=== PATIENT | female | born 1955 | race Caucasian/White ===

== ENCOUNTER → 2019-12-18 | Outpatient (CLI) | payer OTHER ==
--- NOTE | 2019-12-18 10:21 | MR ---
EXAMINATION TYPE: MR knee LT wo con DATE OF EXAM: 12/18/2019 COMPARISON: Plain film 12/09/2019 HISTORY: Lt knee pain x 5 mos, Medial area, no trauma. TECHNIQUE: Multiplanar, multisequence imaging of the left knee is performed without IV contrast. FINDINGS: MEDIAL MENISCUS: There is abnormal intrasubstance signal possibly due to mucoid degeneration. Discont inuity is noted at the posterior horn of the medial meniscus suggesting root anchor tear. Coronal toni ge #23 and 24 and there is some extrusion of the medial meniscus medially. LATERAL MENISCUS: Anterior and posterior horns are intact without tear. CRUCIATE LIGAMENTS: The anterior and posterior cruciate ligaments are intact and unremarkable. COLLATERAL LIGAMENTS: The medial collateral ligament and lateral collateral ligament complex are inta ct and unremarkable. EXTENSOR MECHANISM: Visualized quadriceps and patellar tendons are intact. EFFUSION: Suprapatellar joint effusion is present. POPLITEAL CYST: There is abnormal signal present within the semimembranosus gastrocnemius cyst, mixe d signal is present, difficult to exclude loose body, the cyst measures 3 cm x 6 cm in cephalad to ca udal dimension by 1.8 cm, focus of low signal on T1 and T2-weighted sequences is present measuring 11 mm x 12 mm which may be a loose body within the cyst. Fluid signal is present within the soft tissue s of the musculature along the fascial planes which may represent rupture of the Espinoza's cyst, there may be some associated hemorrhage. TRICOMPARTMENT SPACES: Joint space loss is present in the medial compartment CARTILAGE: Grade 3 to grade IV chondromalacia present in the medial compartment. BONE MARROW SIGNAL: Some subchondral marrow edema suspected in the medial femoral condyle. Small focu s of increased signal within the metaphysis of the distal femur shows a increased signal on T2, low s ignal on T1-weighted images and measures 7 mm in greatest dimension, possible small in chondroma OTHER: No additional significant abnormality is appreciated. IMPRESSION: Tear of the posterior root anchor of the medial meniscus. Osteoarthritis. Semimembranosus gastrocnemi us cyst which may have ruptured, possible small loose body.
== END | disposition home or self-care (01) ==
LOC: RADMRIMAIN 09:01
PROVIDERS: ATTEND Orthopaedic Surgery
DX: S83.242A Other tear of medial meniscus, current injury, left knee, initial encounter (principal); M17.12 Unilateral primary osteoarthritis, left knee

== ENCOUNTER → 2019-12-30 | Outpatient (CLI) | payer OTHER ==
[2019-12-30 10:11] LABS: Basophils % (A) 0 %; Eosinophils # (A) 0.1 k/uL (0-0.7); Eosinophils % (A) 2 %; HCT 44.2 % (34.0-46.0); HGB 14.9 gm/dL (11.4-16.0); Lymphocytes # (A) 1.9 k/uL (1.0-4.8); Lymphocytes % (A) 28 %; MCH 34.3 pg (25.0-35.0); MCHC 33.6 g/dL (31.0-37.0); MCV 102.1 fL (80.0-100.0); Macrocytosis Slight; Mean Platelet Volume 6.4; Monocytes # (A) 0.4 k/uL (0-1.0); Monocytes % (A) 6 %; Neutrophils # (A) 4.1 k/uL (1.3-7.7); Neutrophils % (A) 62 %; Platelet Count 423 k/uL (150-450); RBC 4.33 m/uL (3.80-5.40); RDW 12.4 % (11.5-15.5); WBC 6.6 k/uL (3.8-10.6)
== END | disposition home or self-care (01) ==
LOC: LABPAT 09:28
PROVIDERS: ATTEND Orthopaedic Surgery
DX: Z01.818 Encounter for other preprocedural examination (principal); M23.92 Unspecified internal derangement of left knee
CPT/HCPCS: 85025; 93005

== ENCOUNTER → 2020-01-05 | Outpatient (CLI) | payer OTHER | END | disposition home or self-care (01) | LOC: LABWHC1 14:05 | PROVIDERS: ATTEND Orthopaedic Surgery | DX: Z11.59 Encounter for screening for other viral diseases (principal) ==

== ENCOUNTER 2020-01-07 08:49 | Day surgery (SDC) | payer OTHER ==
[2020-01-06 11:48] VITALS: BMI 21.6
--- NOTE | 2020-01-06 15:23 | HP ---
HISTORY AND PHYSICAL DATE OF SURGERY: 01/07/2020 Anitha Caraballo is a 64-year-old patient seen with progressive left knee pain. We discussed options. She elected to proceed with arthroscopy. Consent was obtained. PAST MEDICAL HISTORY: Hypertension, hyperlipidemia, hypothyroidism. PAST SURGICAL HISTORY: Cholecystectomy, hysterectomy. DAILY MEDICATIONS: Atorvastatin, levothyroxine, multiple vitamins. ALLERGIES: NONE. SOCIAL HISTORY: Denies tobacco use. PHYSICAL EVALUATION OF THE LEFT KNEE: Range of motion is 0 to 120. There is a moderate effusion. Tenderness, medial joint line. Positive medial Za's. Ligaments stable. Hip rotation is without pain. Her distal neurovascular exam is intact. RADIOGRAPHS: Radiographs of the left knee revealed moderate medial compartment osteoarthritis. Left knee MRI revealed medial meniscal tear. IMPRESSION: 1. Internal derangement of the left knee with medial meniscal tear. 2. Left knee osteoarthritis. 3. Hypothyroidism. 4. Hyperlipidemia. PLAN: Left knee arthroscopy with partial meniscectomy, partial synovectomy and debridement. MMODL / IJN: [id number] /
[~2020-01-07 08:49] MED LIST: DEXAMETHASONE SOD PHOSPHATE 10 MG/ML 1 ML VIAL IV ONE; LACTATED RINGERS 1,000 ML IV SCH; LIDOCAINE 1% (10MG/ML) FOR IV START INTRADERMA PRN; MIDAZOLAM 2 MG/2 ML VIAL IV PRN; ONDANSETRON 4 MG/2 ML VIAL IVP ONE
[2020-01-07] MEDS ORDERED: SCOPOLAMINE 1.5MG/72HR PATCH TRANSDERM ONE (09:20)
[2020-01-07 09:41] VITALS: TEMP 97.3
[2020-01-07 09:50] LABS: African American GFR (CKD) >90 (>60 ml/min/1.73 sqM); Anion Gap 7 mmol/L; Blood Urea Nitrogen 17 mg/dL (7-17); Carbon Dioxide 27 mmol/L (22-30); Chloride 106 mmol/L (98-107); Glucose 105 mg/dL (74-99); Non-African American GFR(CKD) >90 (>60 ml/min/1.73 sqM); Potassium 3.6 mmol/L (3.5-5.1); Sodium 140 mmol/L (137-145)
[2020-01-07] MEDS ORDERED: MIDAZOLAM 2 MG/2 ML VIAL ONE (09:55)
[2020-01-07] MEDS ORDERED: HYDROmorphone (PF) 1 MG/ML ONE (09:55)
[2020-01-07] MEDS ORDERED: LIDOCAINE 1% INJ 10MG/ML (20 ML MDV) ONE (09:55)
[2020-01-07] MEDS ORDERED: fentaNYL (PF) 50 MCG/ML 2 ML AMP ONE (09:55)
[2020-01-07] MEDS ORDERED: PROPOFOL 10 MG/ML 20 ML VIAL IV ONE (09:55)
[2020-01-07] MEDS ORDERED: BUPIVACAINE (PF) 0.25% 30 ML VIAL SQ ONE ×2 (10:01→10:41)
--- NOTE | 2020-01-07 11:05 | P.OP ---
Date of Procedure: 01/07/20 Preoperative Diagnosis: Internal derangement left knee Postoperative Diagnosis: 1. Tear medial meniscus left knee 2. Grade 4 chondromalacia medial femoral condyle left knee 3. Reactive synovitis medial, lateral and suprapatellar compartments left knee Procedure(s) Performed: 1. Arthroscopic partial medial meniscectomy left knee 2. Arthroscopic chondroplasty medial femoral condyle left knee 3. Arthroscopic microfracture medial femoral condyle left knee 4. Arthroscopic partial synovectomy medial, lateral and suprapatellar compartments left knee Anesthesia: JENNIFERA, local Surgeon: Adam Chiang Estimated Blood Loss (ml): 7 Pathology: none sent Condition: stable Disposition: PACU Indications for Procedure: 64-year-old patient seen with progressive left knee pain. After treatment options were discussed, she elected to proceed with arthroscopy. Operative Findings: See description of procedure Description of Procedure: Patient was taken to the operative suite. Patient underwent a general anesthetic by the department of anesthesia. Patient was given preoperative antibiotics. The left lower extremity was placed in a well-padded arthroscopic leg coles. The left leg was prepped and draped in the normal sterile orthopedic fashion. A lateral parapatellar and suprapatellar incision was made. Trochars were inserted. Arthroscopy was initiated. Suprapatellar pouch revealed diffuse thick reactive synovitis. The patellofemoral joint appeared to articulate congruently. There was grade 1 chondromalacia of the patella with no osteochondral tears present. The scope was guided into the medial gutter. No loose bodies or plica were identified. The scope was then guided into the medial compartment. A medial parapatellar incision was made. Trocar inserted followed by probe. there was a complex tear involving the posterior horn of the medial meniscus. There were grade 4 chondromalacia changes of the femoral condyle with a 2 cm area of exposed bone. There were grade 4 chondral moist changes of the tibial plateau with small areas of exposed bone. There was thick reactive synovitis anteriorly. I performed a partial medial meniscectomy getting down to stable tissue. I performed a chondroplasty of the medial femoral condyle. I performed a partial synovectomy. I now introduced the microfracture awls performed a microfracture in that area of exposed bone medial femoral condyle penetrating the bone with resultant bleeding at the microfracture site. The residual meniscus was probed and found to be stable. There was good decompression of synovitis.Scope and probe were then guided into the intercondylar notch. Cruciates were identified, probed and found to be stable. The scope and probe were then guided into lateral compartment. The lateral meniscus was probed and found to be stable. There were grade 1 chondromalacia changes of the lateral compartment. There was thick reactive synovitis anteriorly. I performed a partial synovectomy decompressing reactive synovitis. There was good decompression of the synovitis. The scope was in guided back into the suprapatellar compartment. I introduced a motorized shaver into the suprapatellar compartment. I debrided some piecemeal fragments of meniscus I encountered. I performed a partial synovectomy. Shaver was removed. I took more look on the entire knee, no residual debris. Instruments were now removed from the joint. The joint was infiltrated with .25% Marcaine. Steri-Strips were applied to the portal sites. Sterile dressings were applied. The patient was placed into a ALL hose. No tourniquet was utilized. The patient was awakened, transferred to a bed and taken to recovery stable satisfactory condition.
[2020-01-07] MEDS: HYDROmorphone 0.5 MG/0.5 ML SYRINGE IVP PRN ×2 (11:14→11:30)
[2020-01-07] MEDS ORDERED: ONDANSETRON 4 MG/2 ML VIAL IVP ONE (13:01)
[2020-01-07 13:11] VITALS: RESP 18
[2020-01-07] MEDS ORDERED: diphenhydrAMINE 25 MG CAP PO STA (14:30)
[2020-01-07 14:55] VITALS: BP 122/70; PULSE 89
[2020-01-07] MEDS ORDERED: diphenhydrAMINE 25 MG CAP PO ONE (15:13)
== END 2020-01-07 15:51 | disposition home or self-care (01) ==
LOC: OR 08:49
PROVIDERS: ATTEND Orthopaedic Surgery
DX: S83.242A Other tear of medial meniscus, current injury, left knee, initial encounter (principal); X58.XXXA Exposure to other specified factors, initial encounter; M94.262 Chondromalacia, left knee; M65.862 Other synovitis and tenosynovitis, left lower leg; I10 Essential (primary) hypertension; E78.5 Hyperlipidemia, unspecified; E03.9 Hypothyroidism, unspecified; Z79.890 Hormone replacement therapy; Z79.899 Other long term (current) drug therapy; Z90.49 Acquired absence of other specified parts of digestive tract; Z90.710 Acquired absence of both cervix and uterus; Z86.718 Personal history of other venous thrombosis and embolism; H81.09 Meniere's disease, unspecified ear; Z91.012 Allergy to eggs
CPT/HCPCS: 29881; 29879; 29876; 80048; J2250; J1100; J2405; J0690; J2001; J3010; J1170 ×2; J2704

== ENCOUNTER → 2020-04-28 | Outpatient (CLI) | payer OTHER | END | disposition home or self-care (01) | LOC: LABPAT 14:45 | PROVIDERS: ATTEND Orthopaedic Surgery | DX: Z01.812 Encounter for preprocedural laboratory examination (principal) | CPT/HCPCS: 87070 ==

== ENCOUNTER 2020-05-17 13:13 | Day surgery (SDC) | payer OTHER ==
[2020-05-11 15:30] VITALS: BMI 21.6
--- NOTE | 2020-05-16 11:43 | HP ---
HISTORY AND PHYSICAL REASON FOR ADMISSION: Surgery is scheduled for 05/18/2020. HISTORY OF PRESENT ILLNESS: Anitha Caraballo is a 64-year-old patient seen with symptomatic left knee osteoarthritis. After treatment options were discussed with her, she elected to proceed left total knee arthroplasty. Consent regarding the procedure was obtained. Medical clearance was provided by Dr. Fredy Vidales. PAST MEDICAL HISTORY: Hyperlipidemia, hypothyroidism, cardiovascular disease. PAST SURGICAL HISTORY: Colonoscopy, hysterectomy, left knee arthroscopy. DAILY MEDICATIONS: Atorvastatin, estradiol, levothyroxine, triamterene/hydrochlorothiazide, multivitamins. ALLERGIES: None. SOCIAL HISTORY: She denies current tobacco use. PHYSICAL EXAMINATION: Evaluation of the left knee: Range of motion is -3 to 120. She has mild to moderate effusion present. Tenderness along the medial joint line. Crepitus along the medial patellofemoral compartments with range of motion. Pain with patellofemoral compression. Her ligaments are stable. Hip rotation is without pain. Distal neurovascular exam is intact. RADIOGRAPHS: Radiographs of the left knee reveal severe osteoarthritic changes. IMPRESSION: 1. Left knee osteoarthritis. 2. Hypertension. 3. Hyperlipidemia. 4. Hypothyroidism. PLAN: Left total knee arthroplasty. Surgery scheduled for 05/17/2020. MMODL / IJN: [id number] /
[~2020-05-17 13:13] MED LIST changes: +ACETAMINOPHEN TAB 500 MG TAB PO ONE; -LACTATED RINGERS 1,000 ML IV SCH; -LIDOCAINE 1% (10MG/ML) FOR IV START INTRADERMA PRN; +MELOXICAM 7.5 MG TAB PO ONE; +ROPIVACAINE 246.25 MG, EPINEPHrine 0.5 MG, KETOROLAC 30 MG, cloNIDine HCL/PF 80 MCG, WA... MISCELLANE ONE; +SCOPOLAMINE 1.5MG/72HR PATCH TRANSDERM ONE; +TRANEXAMIC ACID 1,000 MG in SODIUM CHLORIDE 0.9% 100 ML IVPB ONE; +fentaNYL (PF) 50 MCG/ML 2 ML AMP IVP PRN
[2020-05-17] MEDS: LACTATED RINGERS 1,000 ML IV SCH ×3 (14:01→18:41)
[2020-05-17] MEDS ORDERED: SODIUM CHLORIDE 0.9% 100 ML BAG ONE (15:05)
[2020-05-17] MEDS ORDERED: PROPOFOL 10 MG/ML 20 ML VIAL IV ONE (15:05)
[2020-05-17] MEDS ORDERED: LIDOCAINE 1% INJ 10MG/ML (20 ML MDV) ONE (15:05)
[2020-05-17] MEDS ORDERED: fentaNYL (PF) 50 MCG/ML 2 ML AMP ONE (15:05)
[2020-05-17] MEDS ORDERED: MIDAZOLAM 2 MG/2 ML VIAL ONE (15:05)
[2020-05-17] MEDS ORDERED: TRANEXAMIC ACID 1,000 MG/10 ML VIAL ONE (15:05)
--- NOTE | 2020-05-17 16:54 | P.OP ---
Date of Procedure: 05/17/20 Preoperative Diagnosis: Left knee osteoarthritis Postoperative Diagnosis: Left knee osteoarthritis Procedure(s) Performed: Left total knee arthroplasty Implants: 1. Depuy attune size 4 left narrow cruciate retaining cemented femur 2. Depuy attune size 2 fixed bearing cemented tibial baseplate 3. Depuy attune size 4 fixed bearing cruciate retaining 6 mm polyethylene tibial insert 4. Depuy attune 35 mm all polyethylene cemented patella Anesthesia: GETA, local, spinal Surgeon: Adam Chiang Back Panel Padder #1: Main Narayanan Estimated Blood Loss (ml): 50 Pathology: other (Bone) Condition: stable Disposition: PACU Indications for Procedure: 64-year-old patient seen with symptomatic left knee osteoarthritis. After treatment options were discussed, she elected to proceed with total knee arthroplasty. Operative Findings: See description of procedure Description of Procedure: Patient was taken to the operative suite after having an adductor canal catheter placed by the department of anesthesia. Patient underwent a spinal anesthetic by the department of anesthesia. Patient was given preoperative IV intake antibiotics and TXA. A well-padded tourniquet was placed about the left lower extremity. The lower extremity was then prepped and draped in the normal sterile orthopedic fashion. The extremity was elevated, a tourniquet was insufflated to 300. A standard anterior incision was made sharply through skin. Dissection was taken down through the subcutaneous soft tissues down to the extensor mechanism. A medial arthrotomy was performed, patella was everted and knee was flexed. There was advanced osteoarthritis noted. At this point the patient began feeling some of the procedure and she was converted to a general anesthetic by the department of anesthesia. I introduced my distal intramedullary femoral drill. I then introduced the distal femoral cutting jig. Duane RAMOS secured the cutting jig with 2 pins. I held retractors in position while Duane RAMOS performed the distal femoral resection through the guide area we now removed her distal femoral cutting guide. We now placed our 4-in-1 femoral cutting block and positioned and it was secured with 2 pins by Duane RAMOS while I held the block in position. The distal femoral finishing was now completed. A proximal tibial cutting guide was positioned. I held the guide in the appropriate position with both hands well Duane RAMOS inserted stabilizing pins into the guide. Proximal tibial cut was made. We now placed a trial femoral component into position, along with an appropriate size tibial tray and insert. We now took the knee through range of motion and had full extension good flexion and good overall soft tissue balance noted. The patella was everted and stabilized with 2 towel clips held by Duane RAMOS while I performed a flush with patellar quad tendon utilizing a fresh sawblade. We templated the patella, appropriate drill holes were made. An appropriate trial patella was positioned, knee was taken through full range of motion with the patella tracking very nicely. The trial patella was removed. Drill holes were made through the femoral component. All trial components were removed after marking off the appropriate rotation of the tibia. Retractors were now positioned along the proximal tibia. An appropriate keel punch was made with t he appropriate size tibial guide by myself on Duane RAMOS assisted by holding retractors. At this point appropriate size implants were chosen and opened. The joint was irrigated copiously with pulse lavage mechanical irrigation. The posterior capsule was infiltrated with local analgesic. The wound was irrigated with pulse lavage mechanical irrigation. We mixed antibiotic methylmethacrylate . We placed the knee into flexion. We placed multiple retractors assisted by Duane RAMOS to expose the proximal tibia. Once the methyl methacrylate was ready, the tibial component was cemented into place removing any excess methylmethacrylate form by both myself and Duane RAMOS. The femoral component was cemented into place removing the removing any excess methylmethacrylate performed by both myself and Duane RAMOS. We then inserted the appropriate size polyethylene tibial insert. We made sure that it was locked into position. We took the knee into full extension, and then back in a flexion making sure we had removed any excess methylmethacrylate. The patellar component was then cemented down and secured with clamp. Excess methylmethacrylate removed. We kept the knee in full extension, patellar clamp in position until methylmethacrylate had hardened. Once it had hardened the patellar clamp was removed. The knee was taken through full range of motion. The patella tracked nicely. There was good soft tissue balancing. The tourniquet was now released. Additional hemostasis was achieved via electrocautery. A second gram of TXA was given. The wound again was irrigated with pulse lavage mechanical irrigation. The superficial soft tissues were infiltrated local analgesic. The extensor mechanism was repaired with Vicryl. We checked the repair with range of motion and it was stable. The subcutaneous soft tissues were repaired with Vicryl in layers. The skin was approximated with pernio/Dermabond. Sterile dressings were applied followed by loose web ro ll and Tolu bandage. The patient was transferred to a bed, and taken to recovery in stable and satisfactory condition. Duane RAMOS assisted with this complex procedure.
[2020-05-17] MEDS ORDERED: HYDROmorphone 0.5 MG/0.5 ML SYRINGE IVP PRN ×2 (16:55)
[2020-05-17] MEDS ORDERED: HYDROmorphone 1 MG/ML 1 ML SYRINGE IVP PRN (16:55)
[2020-05-17] MEDS ORDERED: ONDANSETRON 4 MG/2 ML VIAL IVP PRN (16:55)
[2020-05-17] MEDS ORDERED: NALOXONE 0.4 MG/ML 1 ML VIAL IV PRN (16:55)
[2020-05-17] MEDS ORDERED: HYDROcodone/APAP 5-325MG 1 EACH TAB PO PRN (16:55)
[2020-05-17] MEDS ORDERED: ROPIVACAINE 0.2%-NS ON-Q PUMP 1,090 MG, EMPTY PAIN BALL 1 EACH MISCELLANE PRN (17:06)
[2020-05-17] MEDS: HYDROmorphone 0.5 MG/0.5 ML SYRINGE IVP PRN ×2 (17:39→17:49)
--- NOTE | 2020-05-17 17:41 | XR ---
EXAMINATION TYPE: XR knee limited LT DATE OF EXAM: 05/17/2020 COMPARISON: 03/30/2020 HISTORY: Postop TECHNIQUE: 2 views FINDINGS: There is a total knee prosthesis. Components are in anatomic position. IMPRESSION: No complicating process seen.
[2020-05-17] MEDS: HYDROcodone/APAP 5-325MG 1 EACH TAB PO PRN ×2 (18:39→23:55)
--- NOTE | 2020-05-17 19:37 | P.ANPRN ---
Procedure Note - Anesthesia - Nerve Block Performed Left Adductor Canal Infusion Time Out Performed: Yes Date of Procedure: 05/17/20 Procedure Start Time: 14:08 Procedure Stop Time: 14:25 Location of Patient: PreOp Indication: Acute Post-Operative Pain, Dx/Pain Location, Requested by Surgeon Sedation Type: Sedate with meaningful contact maintained Preparation: Sterile Prep Position: Supine Catheter: Indwelling Needle Types: Pajunk Needle Gauge: 21 Ultrasound used to visualize needle placement: Yes Ultrasound used to observe medication spread: Yes Injectate: 0.5% Ropivacaine (see comment for volume) (15ml) Blood Aspirated: No Pain Paresthesia on Injection Noted: No Resistance on Injection: Normal Image Stored and Saved: Yes Events: Uneventful and Well Tolerated
[2020-05-17] MEDS ORDERED: MELATONIN 3 MG TABLET PO SCH (21:00)
[2020-05-17] MEDS ORDERED: ATORVASTATIN 20 MG TAB PO SCH (21:00)
[2020-05-18] MEDS: LACTATED RINGERS 1,000 ML IV SCH (04:01)
[2020-05-18] MEDS: HYDROcodone/APAP 5-325MG 1 EACH TAB PO PRN ×2 (05:27→11:13)
--- NOTE | 2020-05-18 05:34 | P.PN ---
Progress Note - Text Progress Note Date: 05/18/20 64-year-old female status post left total knee arthroplasty with adductor canal catheter postop day 1. Patient doing well overall. VAS ranges from 0-2 out of 10 in severity. Patient comfortable, ambulated to the bathroom with nurse. Overall doing well.
[2020-05-18] MEDS ORDERED: LEVOTHYROXINE 25 MCG TAB PO SCH (06:30)
[2020-05-18 06:38] LABS: Basophils % (A) 0 %; Eosinophils % (A) 0 %; HCT 35.2 % (34.0-46.0); Lymphocytes % (A) 8 %; MCH 35.6 pg (25.0-35.0); MCHC 34.1 g/dL (31.0-37.0); MCV 104.3 fL (80.0-100.0); Macrocytosis Slight; Mean Platelet Volume 6.2; Monocytes # (A) 0.7 k/uL (0-1.0); Monocytes % (A) 6 %; Neutrophils # (A) 10.2 k/uL (1.3-7.7); Neutrophils % (A) 85 %; Platelet Count 302 k/uL (150-450); RBC 3.38 m/uL (3.80-5.40); RDW 11.5 % (11.5-15.5); WBC 11.9 k/uL (3.8-10.6)
[2020-05-18] MEDS ORDERED: ENOXAPARIN 30 MG/0.3 ML SYRINGE SQ SCH (09:00)
[2020-05-18] MEDS ORDERED: MAGNESIUM OXIDE 400 MG TAB PO SCH (09:00)
[2020-05-18] MEDS ORDERED: LIOTHYRONINE SODIUM 5 MCG TAB PO SCH ×2 (09:00→12:00)
[2020-05-18] MEDS ORDERED: MULTIVITAMINS, THERA 1 EACH TAB PO SCH (09:00)
[2020-05-18] MEDS ORDERED: MELOXICAM 7.5 MG TAB PO SCH (09:00)
[2020-05-18] MEDS ORDERED: TRIAMTERENE-HCTZ 37.5-25MG 1 EACH TAB PO SCH (09:00)
--- NOTE | 2020-05-18 10:53 | P.PN ---
Subjective Progress Note Date: 05/18/20 Principal diagnosis: Status post left total knee arthroplasty Patient is examined today at bedside, she is resting currently. She's done very well in therapy. Pain is well-controlled. She denies any currentchest pain or shortness of breath. Objective - Vital Signs Vital signs: Vital Signs Temp 98.7 F 05/18/20 07:11 Pulse 95 05/18/20 07:11 Resp 17 05/18/20 07:11 BP 120/72 05/18/20 07:11 Pulse Ox 97 05/18/20 07:11 Intake & Output 05/17/20 05/18/20 05/18/20 18:59 06:59 18:59 Intake Total 1900 Output Total 50 Balance 1850 Weight 56.9 kg 56.9 kg Intake: IV 1900 Output: Estimated Blood Loss 50 Other: # Voids 2 - Exam Left lower extremity: Incision is clean, dry, and intact. The Phone Dr. Easley is in good condition. There is minimal soft tissue swelling and ecchymosis surrounding the medial and lateral aspects of the incision. Calf is soft, no tenderness with palpation. Plantar flexion, dorsiflexion, EHL, FHL are intact. Sensory exam to light touch throughout the extremity is intact, dorsal pedis pulses 2+. - Labs CBC & Chem 7: 05/18/20 06:04 Labs: Abnormal Lab Results - Last 24 Hours (Table) 05/18/20 Range/Units 06:04 WBC 11.9 H (3.8-10.6) k/uL RBC 3.38 L (3.80-5.40) m/uL MCV 104.3 H (80.0-100.0) fL MCH 35.6 H (25.0-35.0) pg Neutrophils # 10.2 H (1.3-7.7) k/uL Assessment and Plan Assessment: Status post left total knee arthroplasty Plan: Pain control, plan for discharge home on oral medication DVT prophylaxis, Eliquis 2.5mg bid Wound care instructions discussed, icing and elevating techniques discussed Home therapy and nursing after discharge Medical recommendations Plan for discharge home today Time with Patient: Less than 30
--- NOTE | 2020-05-18 10:55 | P.DS ---
Providers Date of admission: 05/17/2020 Expected date of discharge: 05/18/20 Attending physician: Adam Chiang Consults: 05/17/20 16:55 Consult Physician Routine Consulting Provider: Fredy Vidales Reason/Comments: Medical management Do you want consulting provider notified?: Yes Primary care physician: Shira Khan Hospital Course: Date of admission: 05/17/2020 Date of discharge: 05/18/2020 Admission diagnosis: Status post left total knee arthroplasty Discharge diagnosis: Same Attending physician: Dr. Chiang Surgical procedures: Left total knee arthroplasty Brief history: Patient is a 64-year-old female with a history of progressive primary left knee osteoarthritis. At this point patient has failed conservative treatment measures and has opted to proceed with a elective left total knee arthroplasty. Hospital course: Details of patient's surgery can be found in operative report. Patient tolerated the procedure well and was subsequently transported to orthopedic floor. Patient's orthopeidc and medical care was provided daily. Patient had daily laboratory tests performed for evaluation of overall blood counts. Patient had daily physical therapy to include strengthening range of motion as well as education with walker ambulation. Patient was treated with Lovenox for their postoperative DVT prophylaxis during their inpatient stay. Patient was noted to have a relatively uneventful postoperative course. Patient reported satisfactory pain control with oral pain medications by postoperative day 0. Patient showed satisfactory progress with physical therapy. Patient moved steadily through the program and had no difficulty meeting the goals by postoperative day 1. Given patient's otherwise satisfactory course and having met physical therapy goals, plan is to discharge patient home on postoperative day 1. Discharge condition/disposition: Patient will be discharged home in stable condition. Discharge medications: Instructions are given on resumption of patient's normal daily medications per primary care recommendation, in addition patient will be prescribed [place] 7.5 mg/25 mg, Colace 100mg, Eliquis 2.5mg. Discharge instructions: 1. Wound care and infection precautions, keep incision dry and covered while showering, no lotions, creams, moisturizers. No soaking, tubs, pools, hottubs. Do not scrub over the incision. 2. Weight-bear as tolerated with walker / cane until follow-up. 3. Ice and elevate when necessary. Do not exceed 20 minutes per hour with ice pack. 4. Utilize compression sleeve until seen at first follow up appointment. 5. Visiting nursing care. 6. Home physical therapy including home CPM. 7. Pain meds and anticoagulants per prescription. 8. Pain medication has potential to cause constipation. Increase oral fluid and fiber intake. Contact primary care provider if you have not had a bowel movement within 48 hours after discharge 9. No anti-inflammatory medication until discussed at first post operative visit, this including Motrin, Aleve, Mobic, Diclofenac. 10. Follow up in office at 2 weeks postop with Duane Narayanan PA-C 11. Follow up with your primary care doctor 7-10 days after discharge. 12. Contact [facility] with any questions, . Procedures: Left total knee arthroplasty Patient Condition at Discharge: Good Plan - Discharge Summary Discharge Rx Participant: No New Discharge Prescriptions: New Docusate [Colace] 100 mg PO DAILY #30 capsule Apixaban [Eliquis] 2.5 mg PO BID #60 tab HYDROcodone/APAP 7.5-325MG [[place] 7.5] 1 - 2 each PO Q6HR PRN #42 tab PRN Reason: Pain No Action Atorvastatin [Lipitor] 20 mg PO HS diphenhydrAMINE [Benadryl] 25 mg PO DAILY Liothyronine Sodium [Cytomel] 5 mcg PO DAILY Liothyronine Sodium [Cytomel] 2.5 mcg PO 1200 Levothyroxine Sodium [Synthroid] 25 mcg PO DAILY Triamterene/Hydrochlorothiazid [Triamterene-Hctz 37.5-25 mg Tb] 1 each PO DAILY Psyllium Husk [Metamucil] 0.4 gm PO HS Progesterone, Micronized [Progesterone] 200 mg PO HS Melatonin 3 mg PO HS L.acidoph,Paracasei, B.lactis [Probiotic] 1 each PO DAILY Cholecalciferol [Vitamin D3 (25 Mcg = 1000 Iu)] 5,000 unit PO DAILY Vitamin C With Collagen 1 tab PO DAILY Magnesium 200 mg PO DAILY Flaxseed Oil 1,000 mg PO DAILY Cinnamon Bark [Cinnamon] 500 mg PO DAILY Cider Vinegar [Apple Cider Vinegar] 300 mg PO DAILY Turmeric Root Extract [Turmeric] 500 mg PO DAILY Glucosamine Sulfate 500 mg PO DAILY Caron 500 mg PO DAILY Phytonadione [Vitamin K] 5 mg PO DAILY Multivitamins, Thera [Multivitamin (formulary)] 1 tab PO DAILY Krill Oil 500 mg PO DAILY Cranberry Fruit Extract [Cranberry] 200 mg PO DAILY Biotin 5 mg PO DAILY Ubidecarenone [Co Q-10] 100 mg PO DAILY Aloe Vera 5,000 mg PO DAILY Glycin 1 tab PO DAILY Glutathione 1 tab PO DAILY Discharge Medication List Atorvastatin [Lipitor] 20 mg PO HS 01/06/20 [History] L.acidoph,Paracasei, B.lactis [Probiotic] 1 each PO DAILY 01/06/20 [History] Levothyroxine Sodium [Synthroid] 25 mcg PO DAILY 01/06/20 [History] Liothyronine Sodium [Cytomel] 2.5 mcg PO 1200 01/06/20 [History] Liothyronine Sodium [Cytomel] 5 mcg PO DAILY 01/06/20 [History] Melatonin 3 mg PO HS 01/06/20 [History] Progesterone, Micronized [Progesterone] 200 mg PO HS 01/06/20 [History] Psyllium Husk [Metamucil] 0.4 gm PO HS 01/06/20 [History] Triamterene/Hydrochlorothiazid [Triamterene-Hctz 37.5-25 mg Tb] 1 each PO DAILY 01/06/20 [History] diphenhydrAMINE [Benadryl] 25 mg PO DAILY 01/06/20 [History] Aloe Vera 5,000 mg PO DAILY 05/11/20 [History] Biotin 5 mg PO DAILY 05/11/20 [History] Cholecalciferol [Vitamin D3 (25 Mcg = 1000 Iu)] 5,000 unit PO DAILY 05/11/20 [History] Cider Vinegar [Apple Cider Vinegar] 300 mg PO DAILY 05/11/20 [History] Cinnamon Bark [Cinnamon] 500 mg PO DAILY 05/11/20 [History] Cranberry Fruit Extract [Cranberry] 200 mg PO DAILY 05/11/20 [History] Flaxseed Oil 1,000 mg PO DAILY 05/11/20 [History] Caron 500 mg PO DAILY 05/11/20 [History] Glucosamine Sulfate 500 mg PO DAILY 05/11/20 [History] Glutathione 1 tab PO DAILY 05/11/20 [History] Glycin 1 tab PO DAILY 05/11/20 [History] Krill Oil 500 mg PO DAILY 05/11/20 [History] Magnesium 200 mg PO DAILY 05/11/20 [History] Multivitamins, Thera [Multivitamin (formulary)] 1 tab PO DAILY 05/11/20 [History] Phytonadione [Vitamin K] 5 mg PO DAILY 05/11/20 [History] Turmeric Root Extract [Turmeric] 500 mg PO DAILY 05/11/20 [History] Ubidecarenone [Co Q-10] 100 mg PO DAILY 05/11/20 [History] Vitamin C With Collagen 1 tab PO DAILY 05/11/20 [History] Apixaban [Eliquis] 2.5 mg PO BID #60 tab 05/18/20 [Rx] Docusate [Colace] 100 mg PO DAILY #30 capsule 05/18/20 [Rx] HYDROcodone/APAP 7.5-325MG [[place] 7.5] 1 - 2 each PO Q6HR PRN #42 tab 05/18/20 [Rx] Follow up Appointment(s)/Referral(s): Fredy Vidales MD [STAFF PHYSICIAN] - 1 Week [facility], [NON-STAFF] - As Needed Main Narayanan PAC [PHYSICIAN [employer]] - 06/02/20 2:50 pm Activity/Diet/Wound Care/Special Instructions: Orthopedic Discharge Instructions: 1. Wound care and infection precautions, keep incision dry and covered while showering, no lotions, creams, moisturizers. No soaking, pools, hot tubs. Do not scrub over incision. Ok to remove foam bandage on 05/27/2020, can shower over after 2. Weight-bear as tolerated with walker / cane until follow-up. 3. Ice and elevate when necessary. Do not exceed 20 minutes per hour with ice pack. 4. Utilize compression sleeve until seen at first follow up appointment. 5. Pain meds and anticoagulants per prescription. 6. Pain medication has potential to cause constipation. Increase oral fluid and fiber intake. Contact primary care provider if you have not had a bowel movement within 48 hours after discharge. 7. No anti-inflammatory medication until discussed at first post operative visit, this including Motrin, Aleve, Mobic, Diclofenac. 8. Follow up in office at 2 weeks postop with Duane Narayanan PA-C 9. Follow up with your primary care doctor 7-10 days after discharge. 10. Contact [facility] with any questions, . Discharge Disposition: HOME WITH HOME HEALTH SERVICES
[2020-05-18 12:46] VITALS: BP 118/78; PULSE 86; RESP 16; TEMP 98.4
== END 2020-05-18 13:26 | disposition home health service (06) ==
LOC: OR 13:13 → 4SSUR 16:46 → OR 05-18 13:26
PROVIDERS: ATTEND Orthopaedic Surgery
DX: M17.12 Unilateral primary osteoarthritis, left knee (principal); I48.0 Paroxysmal atrial fibrillation; I10 Essential (primary) hypertension; E78.5 Hyperlipidemia, unspecified; E03.9 Hypothyroidism, unspecified; Z79.3 Long term (current) use of hormonal contraceptives; Z79.890 Hormone replacement therapy; Z79.899 Other long term (current) drug therapy; Z90.710 Acquired absence of both cervix and uterus; Z98.890 Other specified postprocedural states
CPT/HCPCS: 97110; 97161; 64448; 76942; 85025; 88300; 73560; 27447; C1776; C1713; J2250; J0171; J1100; J0690 ×2; J2405; J2001; J3010; J1885; J1650; J2795 ×2; J2704; J0735; J1170

== ENCOUNTER → 2020-05-26 | Outpatient (CLI) | payer OTHER ==
--- NOTE | 2020-06-01 08:35 | MM ---
Reason for exam: screening (asymptomatic). Last mammogram was performed 1 year and 2 months ago. History: Patient is postmenopausal and history of other cancer. Family history of breast cancer in maternal aunt at age 50 and breast cancer in paternal aunt at age 50. Benign ultrasound-guided core biopsy of the left breast, 2000. Benign excisional biopsy of both breasts. Took estrogen for 20 years. Took progesterone for 20 years. Took other hormone for 20 years. Physical Findings: A clinical breast exam by your physician is recommended on an annual basis and results should be correlated with mammographic findings. MG 3D Screening Mammo W/Cad Bilateral CC and MLO view(s) were taken. Prior study comparison: March 13, 2019, mammogram. February 05, 2018, mammogram. The breast tissue is extremely dense which could obscure a lesion on mammography. Benign appearing bilateral calcifications. ASSESSMENT: Benign, BI-RAD 2 RECOMMENDATION: Routine screening mammogram of both breasts in 1 year.
== END | disposition home or self-care (01) ==
LOC: RADMAMWWP 10:02
PROVIDERS: ATTEND Family Medicine
DX: Z12.31 Encounter for screening mammogram for malignant neoplasm of breast (principal)
CPT/HCPCS: 77063; 77067

== ENCOUNTER 2020-09-27 08:47 | Day surgery (SDC) | payer OTHER ==
[2020-09-22 10:30] VITALS: BMI 21.7
--- NOTE | 2020-09-26 13:12 | HP ---
HISTORY AND PHYSICAL REASON FOR ADMISSION: Surgery is scheduled for 09/27/2020 HISTORY OF PRESENT ILLNESS: Anitha Caraballo is a 65-year-old patient with persistent left knee adhesions after previously having undergone total knee arthroplasty. We discussed manipulation under anesthesia with steroid injection. She was agreeable. Consent obtained. PAST MEDICAL HISTORY: Hyperlipidemia, cardiovascular disease, spinal stenosis, hypothyroidism. SURGICAL HISTORY: Total knee arthroplasty, hysterectomy, colonoscopy. MEDS: Levothyroxine, atorvastatin, multivitamins. ALLERGIES: None. SOCIAL HISTORY: She denies tobacco use. PHYSICAL EXAMINATION: Evaluation of the left knee: Her incision is well healed. Range of motion 0-110. Her ligaments are stable. Distal neurovascular exam is intact. RADIOGRAPHS: Radiographs of the left knee revealed a stable appearing left total knee arthroplasty. IMPRESSION: 1. Left knee adhesions. 2. Left total knee arthroplasty. 3. Hypertension. 4. Hypothyroidism. PLAN: Manipulation under anesthesia left knee with steroid injection. Surgery 09/27/2020. MMODL / IJN: [id number] /
[~2020-09-27 08:47] MED LIST changes: -ACETAMINOPHEN TAB 500 MG TAB PO ONE; -DEXAMETHASONE SOD PHOSPHATE 10 MG/ML 1 ML VIAL IV ONE; +LACTATED RINGERS 1,000 ML IV SCH; +LIDOCAINE 1% (10MG/ML) FOR IV START INTRADERMA PRN; -MELOXICAM 7.5 MG TAB PO ONE; -MIDAZOLAM 2 MG/2 ML VIAL IV PRN; -ONDANSETRON 4 MG/2 ML VIAL IVP ONE; +Pre Op ABX Message 1 EACH MISC MISCELLANE ONE; -ROPIVACAINE 246.25 MG, EPINEPHrine 0.5 MG, KETOROLAC 30 MG, cloNIDine HCL/PF 80 MCG, WA... MISCELLANE ONE; -SCOPOLAMINE 1.5MG/72HR PATCH TRANSDERM ONE; -TRANEXAMIC ACID 1,000 MG in SODIUM CHLORIDE 0.9% 100 ML IVPB ONE; -fentaNYL (PF) 50 MCG/ML 2 ML AMP IVP PRN
[2020-09-27 09:10] VITALS: TEMP 97.1
[2020-09-27] MEDS ORDERED: ONDANSETRON 4 MG/2 ML VIAL ONE (09:14)
[2020-09-27] MEDS ORDERED: LIDOCAINE 1% (10MG/ML) FOR IV START INTRADERMA ONE (09:35)
[2020-09-27] MEDS ORDERED: MIDAZOLAM 2 MG/2 ML VIAL IV ONE (09:44)
[2020-09-27] MEDS ORDERED: fentaNYL (PF) 50 MCG/ML 2 ML AMP IV ONE (09:44)
[2020-09-27] MEDS ORDERED: LIDOCAINE 1% INJ 10MG/ML (20 ML MDV) ONE (09:58)
[2020-09-27] MEDS ORDERED: SODIUM CHLORIDE 0.9% 100 ML BAG ONE (09:58)
[2020-09-27] MEDS ORDERED: ceFAZolin 1,000 MG VIAL ONE (09:58)
[2020-09-27] MEDS ORDERED: PROPOFOL 10 MG/ML 20 ML VIAL IV ONE (09:58)
[2020-09-27] MEDS ORDERED: methylPREDNISolone ACETATE 80 MG/ML 1 ML VIAL INJ ONE (10:02)
--- NOTE | 2020-09-27 10:07 | P.OP ---
Date of Procedure: 09/27/20 Preoperative Diagnosis: Left knee adhesions Postoperative Diagnosis: Left knee adhesions Procedure(s) Performed: Manipulation under anesthesia left knee with steroid injection Anesthesia: MAC, regional (Adductor canal block) Surgeon: Adam Chiang Estimated Blood Loss (ml): 0 Pathology: none sent Condition: stable Disposition: PACU Indications for Procedure: 65-year-old patient seen with persistent left knee adhesions after having previously undergone total knee arthroplasty. After having discussed options for treatment she elected to proceed with manipulation under anesthesia with steroid injection. Operative Findings: see description of procedure Description of Procedure: Patient was taken to a monitored anesthesia area after having undergone and abductor canal block by the department of anesthesia for postoperative pain management. Patient received preoperative IV antibiotics. Patient underwent IV sedation by the department of anesthesia. Once sufficient anesthesia was noted I performed a manipulation of the left knee achieving full range of motion with audible tearing of the adhesions. The superior lateral aspect of the knee was now prepped and draped in the normal sterile orthopedic fashion. I injected a solution of 1 mL Depo-Medrol and 2 mL Marcaine intra-articular under sterile technique. A sterile Band-Aid was applied. I again took the knee through range of motion. The patient was awakened having tolerated procedure well.
[2020-09-27] MEDS ORDERED: HYDROmorphone 0.5 MG/0.5 ML SYRINGE IVP ONE (10:18)
[2020-09-27 10:27] VITALS: RESP 16
[2020-09-27] MEDS ORDERED: LACTATED RINGERS 1,000 ML IV ONE ×2 (10:30)
[2020-09-27] MEDS ORDERED: KETOROLAC 15 MG/ML 1 ML VIAL IVP ONE (10:46)
[2020-09-27 12:11] VITALS: BP 130/71; PULSE 77
--- NOTE | 2020-09-27 12:37 | P.ANPRN ---
Procedure Note - Anesthesia - Nerve Block Performed Left Adductor Canal Single Time Out Performed: Yes ([id number]) Date of Procedure: 09/27/20 Procedure Start Time: 09:44 Procedure Stop Time: 09:50 Location of Patient: PreOp Indication: Acute Post-Operative Pain, Requested by Surgeon Specifically requested for management of pain by DrDougie: Adam Chiang Sedation Type: Sedate with meaningful contact maintained Preparation: Sterile Prep Position: Supine Catheter: None Needle Types: Pajunk Needle Gauge: 21 Ultrasound used to visualize needle placement: Yes Ultrasound used to observe medication spread: Yes Injectate: 0.5% Ropivacaine (see comment for volume) (20cc) Blood Aspirated: No Pain Paresthesia on Injection Noted: No Resistance on Injection: Normal Image Stored and Saved: No (due to technical difficulties, Image was unable to be stored or printed. ) Events: Uneventful and Well Tolerated
== END 2020-09-27 12:37 | disposition home or self-care (01) ==
LOC: OR 08:47
PROVIDERS: ATTEND Orthopaedic Surgery
DX: M23.8X2 Other internal derangements of left knee (principal); I10 Essential (primary) hypertension; E03.9 Hypothyroidism, unspecified; Z96.652 Presence of left artificial knee joint; E78.5 Hyperlipidemia, unspecified; M48.00 Spinal stenosis, site unspecified; I25.10 Atherosclerotic heart disease of native coronary artery without angina pectoris; Z90.710 Acquired absence of both cervix and uterus; Z98.890 Other specified postprocedural states; Z79.84 Long term (current) use of oral hypoglycemic drugs; Z79.899 Other long term (current) drug therapy; Z91.012 Allergy to eggs; Z91.02 Food additives allergy status
CPT/HCPCS: 64447; 27570; 76942; J2250; J1040; J0690; J2001; J3010; J1885; J2704; J1170

== ENCOUNTER → 2021-04-21 | Outpatient (CLI) | payer OTHER ==
--- NOTE | 2021-04-21 14:15 | EST ---
EXERCISE STRESS DATE OF STUDY: 04/21/2021 AGE: 65 SEX: F HT: 5'3" WT: 125 lbs. PROTOCOL: Cardiolite STAGE: 2 DURATION OF EXERCISE: 7:35 HEART RATE REST: 87 BLOOD PRESSURE REST: 143/95 MAXIMUM HEART RATE ACHIEVED: 137 MAXIMUM BLOOD PRESSURE: 152/86 85% MPHR: 133 100% MPHR: 156 METS: 8 INDICATIONS: Chest pain CLINICAL INFORMATION: STRESS DATA: Heart rate 87, pressure 143/95 mmHg. Baseline EKG showed sinus mechanism. The patient exercised on the treadmill according to Francisco Javier protocol for a total of 7 minutes and achieved 8.0 METS. Max heart rate was 137, which is about 88% of maximum predicted heart rate, and maximum blood pressure was 152/86 mmHg. Clinically the patient did not have any symptoms. The EKG did not show any significant ST or T-wave abnormalities concerning for ischemia. CONCLUSION: 1. Good exercise tolerance. 2. Normal EKG in response to exercise. 3. Please follow up on the Cardiolite portion in a separate report from Radiology Department. MMODL / IJN: [id number] /
--- NOTE | 2021-04-21 16:08 | NM ---
EXAMINATION TYPE: NM stress cardiolite complete DATE OF EXAM: 04/21/2021 COMPARISON: NONE HISTORY: 65-year-old female R07.2, precordial chest pain TECHNIQUE: After the intravenous administration of 9.4 mCi Tc 99m Sestamibi - Rest images obtained 4 5 minutes post injection. The patient exercised using a ANDREA protocol and 1 minute prior to peak e xercise was injected with 26.4 mCi Tc 99m Sestamibi - Stress images obtained 35 minutes post injectio n. FINDINGS: Targeted heart rate was 133 bpm. Heart rate achieved during the study was 137 BPM. Total exercise indira e 7 minutes 35 seconds. Review of stress and rest SPECT images demonstrates prominent adjacent GI activity on the rest images no distinct perfusion abnormality. Gated analysis shows normal wall motion with an estimated left v entricular ejection fraction of 68 %. TID is calculated at 0.76, within normal limits. IMPRESSION: No scintigraphic evidence for reversible ischemia
== END | disposition home or self-care (01) ==
LOC: RADNMMAIN 08:19
PROVIDERS: ATTEND Family Medicine
DX: R07.2 Precordial pain (principal)
CPT/HCPCS: 93017; 78452; A9500

== ENCOUNTER → 2021-07-27 | Outpatient (CLI) | payer MEDICARE, OTHER ==
--- NOTE | 2021-08-01 12:08 | MM ---
Reason for exam: screening (asymptomatic). Last mammogram was performed 1 year and 2 months ago. History: Patient is postmenopausal and history of other cancer. Family history of breast cancer in 2 paternal aunts at age 50. Benign ultrasound-guided core biopsy of the left breast, 2000. Benign excisional biopsy of both breasts. Taking estrogen for 20 years beginning at age 46. Taking progesterone for 20 years beginning at age 46. Took other hormone for 20 years. Physical Findings: A clinical breast exam by your physician is recommended on an annual basis and results should be correlated with mammographic findings. MG 3D Screening Mammo W/Cad Bilateral CC and MLO view(s) were taken. Prior study comparison: May 26, 2020, bilateral MG 3d screening mammo w/cad. March 13, 2019, mammogram. The breast tissue is heterogeneously dense. This may lower the sensitivity of mammography. Previous mammotome biopsy in the left breast. No significant changes when compared with prior studies. ASSESSMENT: Benign, BI-RAD 2 RECOMMENDATION: Routine screening mammogram of both breasts in 1 year. Patient should continue monthly self breast exams. A negative report should not preclude additional follow up of suspicious palpable abnormalities.
== END | disposition home or self-care (01) ==
LOC: RADMAMWWP 13:48
PROVIDERS: ATTEND Family Medicine
DX: Z12.31 Encounter for screening mammogram for malignant neoplasm of breast (principal); Z80.3 Family history of malignant neoplasm of breast; Z78.0 Asymptomatic menopausal state
CPT/HCPCS: 77063; 77067

== ENCOUNTER → 2021-12-09 | Outpatient (CLI) | payer MEDICARE, OTHER ==
[2021-12-09 14:23] LABS: MCH 34.2 pg (27.0-32.0); MCHC 33.3 g/dL (32.0-37.0); MCV 102.7 fL (80.0-97.0); Mean Platelet Volume 9.2 fL (9.5-12.2); NRBC Per 100 WBC 0 /100 WBCS (0.0-0.0); Platelet Count 329 X 10*3/uL (140-440); RBC 4.09 X 10*6/uL (4.10-5.20); RDW 12.1 % (11.5-14.5); WBC 6.65 X 10*3/uL (4.50-10.00)
[2021-12-09 14:43] LABS: ALT 18 U/L (8-44); AST 26 U/L (13-35); African American GFR (CKD) 110.9 (60.0-200.0); Albumin 5.2 g/dL (3.8-4.9); Albumin/Globulin Ratio 1.93 (1.60-3.17); Alkaline Phosphatase 66 U/L (41-126); BUN/Creat Ratio 29.33 Ratio (12.00-20.00); Blood Urea Nitrogen 17.6 mg/dL (9.0-27.0); Calcium 10.1 mg/dL (8.7-10.3); Carbon Dioxide 27.5 mmol/L (20.0-27.5); Chloride 101 mmol/L (96-109); Chol/HDL Ratio 3.03 Ratio; Globulin 2.7 g/dL (1.6-3.3); Glucose 95 mg/dL (70-110); LDL Cholesterol,Calculated 106.1 mg/dL (0.0-131.0); Non-African American GFR(CKD) 95.7 (60.0-200.0); Potassium 3.6 mmol/L (3.5-5.5); Sodium 143 mmol/L (135-145); Total Protein 7.9 g/dL (6.2-8.2)
[2021-12-09 15:53] LABS: Progesterone 1.9 ng/mL
== END | disposition home or self-care (01) ==
LOC: LABWHC1 09:00
PROVIDERS: ATTEND Physician Assistant Medical
DX: E78.1 Pure hyperglyceridemia (principal); Z78.0 Asymptomatic menopausal state; D75.89 Other specified diseases of blood and blood-forming organs; E78.5 Hyperlipidemia, unspecified; Z79.890 Hormone replacement therapy; E07.9 Disorder of thyroid, unspecified
CPT/HCPCS: 36415; 80053; 80061; 82533; 82626; 82670; 84144; 84439; 84443; 84480; 85027

== ENCOUNTER 2022-01-26 07:45 | Day surgery (SDC) | payer MEDICARE, OTHER ==
[2022-01-25 08:53] VITALS: BMI 22.1
[~2022-01-26 07:45] MED LIST changes: -LIDOCAINE 1% (10MG/ML) FOR IV START INTRADERMA PRN; -Pre Op ABX Message 1 EACH MISC MISCELLANE ONE
[2022-01-26 08:12] VITALS: TEMP 97.3
[2022-01-26] MEDS ORDERED: LIDOCAINE 1% (10MG/ML) FOR IV START INTRADERMA ONE (08:16)
--- NOTE | 2022-01-26 08:26 | P.GSHP ---
History of Present Illness H&P Date: 01/26/22 CHIEF COMPLAINT: Colon screen HISTORY OF PRESENT ILLNESS: The patient is a 66-year-old female who presents for colon screen. Lower endoscopy was offered for further evaluation and management. PAST MEDICAL HISTORY: Please see list. PAST SURGICAL HISTORY: Please see list. MEDICATIONS: Please see list. ALLERGIES: Please see list. SOCIAL HISTORY: No illicit drug use FAMILY HISTORY: No reports of Crohn disease or ulcerative colitis. REVIEW OF ORGAN SYSTEMS: CONSTITUTIONAL: No reports of fevers or chills. PHYSICAL EXAM: VITAL SIGNS: Stable GENERAL: Well-developed pleasant in no acute distress. HEENT: No scleral icterus. Extraocular movements grossly intact. Moist buccal mucosa. NECK: Supple without lymphadenopathy. CHEST: Unlabored respirations. Equal bilateral excursions. CARDIOVASCULAR: Regular rate and rhythm. Distal 2+ pulses. ABDOMEN: Soft, nontender, nondistended. MUSCULOSKELETAL: No clubbing, cyanosis, or edema. ASSESSMENT: 1. Colon screen. PLAN: 1. Recommend proceeding with a lower endoscopy Past Medical History Past Medical History: Cancer, Hyperlipidemia, Osteoarthritis (OA), Thyroid Disorder Additional Past Medical History / Comment(s): hx. squamous cancer, hx. superficial blood clot in leg >20 yrs. ago, Meniere's disease, occasional irregular heart beat, tends to run low BP History of Any Multi-Drug Resistant Organisms: None Reported Past Surgical History: Hysterectomy, Joint Replacement, Orthopedic Surgery Additional Past Surgical History / Comment(s): lt. meniscus surg., multiple sinus surgeries, left knee replaced 2019, COLONOSCOPY Past Anesthesia/Blood Transfusion Reactions: Motion Sickness, Postoperative Nausea & Vomiting (PONV) Additional Past Anesthesia/Blood Transfusion Reaction / Comment(s): severe PONV & experienced lingering headache for 2-3 days following general anesthesia, did ok after knee replacement Smoking Status: Never smoker - Past Family History Father Family Medical History: Deep Vein Thrombosis (DVT) Additional Family Medical History / Comment(s): CABG Mother Family Medical History: Coronary Artery Disease (CAD), Deep Vein Thrombosis (DVT) Sister(s) Additional Family Medical History / Comment(s): aneursym x3 Medications and Allergies Home Medications Medication Instructions Recorded Confirmed Type Atorvastatin [Lipitor] 20 mg PO HS 01/06/20 01/26/22 History L.acidoph,Paracasei, B.lactis 1 each PO DAILY 01/06/20 01/26/22 History [Probiotic] Levothyroxine Sodium [Synthroid] 25 mcg PO DAILY 01/06/20 01/26/22 History Liothyronine Sodium [Cytomel] 2.5 mcg PO 1200 01/06/20 01/26/22 History Liothyronine Sodium [Cytomel] 5 mcg PO DAILY 01/06/20 01/26/22 History Melatonin 3 mg PO HS PRN 01/06/20 01/26/22 History Progesterone, Micronized 200 mg PO HS 01/06/20 01/26/22 History [Progesterone] Psyllium Husk [Metamucil] 0.4 gm PO HS 01/06/20 01/26/22 History Triamterene/Hydrochlorothiazid 1 each PO DAILY 01/06/20 01/26/22 History [Triamterene-Hctz 37.5-25 mg Tb] diphenhydrAMINE [Benadryl] 25 mg PO DAILY 01/06/20 01/26/22 History Aloe Vera 5,000 mg PO DAILY 05/11/20 01/26/22 History Biotin 5 mg PO DAILY 05/11/20 01/26/22 History Cholecalciferol [Vitamin D3 (25 10,000 unit PO DAILY 05/11/20 01/26/22 History Mcg = 1000 Iu)] Cider Vinegar [Apple Cider Vinegar] 300 mg PO DAILY 05/11/20 01/26/22 History Cinnamon Bark [Cinnamon] 500 mg PO DAILY 05/11/20 01/26/22 History Cranberry Fruit Extract [Cranberry] 200 mg PO DAILY 05/11/20 01/26/22 History Caron 500 mg PO DAILY 05/11/20 01/26/22 History Glucosamine Sulfate 500 mg PO DAILY 05/11/20 01/26/22 History Glutathione 1 tab PO DAILY 05/11/20 01/26/22 History Glycin 1 tab PO DAILY 05/11/20 01/26/22 History Krill Oil 500 mg PO DAILY 05/11/20 01/26/22 History Magnesium 200 mg PO DAILY 05/11/20 01/26/22 History Multivitamins, Thera [Multivitamin 1 tab PO DAILY 05/11/20 01/26/22 History (formulary)] Phytonadione [Vitamin K] 5 mg PO DAILY 05/11/20 01/26/22 History Turmeric Root Extract [Turmeric] 500 mg PO DAILY 05/11/20 01/26/22 History Ubidecarenone [Co Q-10] 100 mg PO DAILY 05/11/20 01/26/22 History Vitamin C With Collagen 1 tab PO DAILY 05/11/20 01/26/22 History flaxseed oiL [Flaxseed Oil] 1,000 mg PO DAILY 05/11/20 01/26/22 History Naproxen Sod/Diphenhydramine 1 each PO HS PRN 09/22/20 01/26/22 History [Aleve Pm Caplet] Allergies Allergy/AdvReac Type Severity Reaction Status Date / Time gluten Allergy Nausea & Verified 01/26/22 08:05 Vomiting egg yolk AdvReac Nausea & Verified 01/26/22 08:05 Vomiting Surgical - Exam Vital Signs Temp Pulse Resp BP Pulse Ox 97.3 F L 59 L 18 140/76 95 01/26/22 08:09 01/26/22 08:09 01/26/22 08:09 01/26/22 08:09 01/26/22 08:09
[2022-01-26] MEDS ORDERED: ONDANSETRON 4 MG/2 ML VIAL ONE (08:30)
[2022-01-26] MEDS ORDERED: PROPOFOL 10 MG/ML 20 ML VIAL IV ONE (08:30)
[2022-01-26 09:00] VITALS: RESP 16
--- NOTE | 2022-01-26 09:33 | P.PCN ---
Date of Procedure: 01/26/22 Description of Procedure: PREOPERATIVE DIAGNOSIS: Family history colon cancer Personal history colon polyps POSTOPERATIVE DIAGNOSIS: Family history colon cancer Personal history colon polyps Sigmoid diverticulosis Pandiverticulosis OPERATION: Colonoscopy to the cecum, ileocecal valve and appendiceal orifice. SURGEON: Anitha Key MD. ANESTHESIA: MAC. INDICATIONS: The patient is a 66-year-old female who presents for colonoscopy screening. Last colonoscopy 5 years ago. Benefits and risks were described and informed consent was obtained. DESCRIPTION OF PROCEDURE: The patient had undergone Sutab prep. The patient had been brought into the operating room and laid in the left lateral decubitus position. After adequate intravenous sedation, the rectum was examined with 2% lidocaine jelly. No external hemorrhoids were encountered. The rectal tone was within normal limits. No lesions were palpated in the rectal vault. An Olympus colonoscope was advanced until the cecum, ileocecal valve and appendiceal orifice were clearly viewed. The prep was good. Scattered diverticulosis pandiverticulosis was encountered. At the proximal transverse colon, small 5 mm adenoma was identified however unable to retrieve due to severe angulation despite multiple attempts. No evidence of focal colitis was found. Retroflexion of the scope demonstrated grade 1 internal hemorrhoids without active bleeding or inflammation. The colon was desufflated. The patient had tolerated the procedure well. Withdrawal time was over 6 minutes. FINDINGS: Aronchick preparation quality scale 2 (1-5) Internal hemorrhoids, grade 1 No external prolapsed hemorrhoids. No arteriovenous malformations. Sigmoid diverticulosis Pandiverticulosis No focal colitis. RECOMMENDATIONS: Lower endoscopy in one year, 2022 Plan - Discharge Summary Discharge Rx Participant: No New Discharge Prescriptions: Continue Atorvastatin [Lipitor] 20 mg PO HS diphenhydrAMINE [Benadryl] 25 mg PO DAILY Liothyronine Sodium [Cytomel] 5 mcg PO DAILY Liothyronine Sodium [Cytomel] 2.5 mcg PO 1200 Levothyroxine Sodium [Synthroid] 25 mcg PO DAILY Triamterene/Hydrochlorothiazid [Triamterene-Hctz 37.5-25 mg Tb] 1 each PO DAILY Psyllium Husk [Metamucil] 0.4 gm PO HS Progesterone, Micronized [Progesterone] 200 mg PO HS Melatonin 3 mg PO HS PRN PRN Reason: Insomnia L.acidoph,Paracasei, B.lactis [Probiotic] 1 each PO DAILY Cholecalciferol [Vitamin D3 (25 Mcg = 1000 Iu)] 10,000 unit PO DAILY Vitamin C With Collagen 1 tab PO DAILY Magnesium 200 mg PO DAILY flaxseed oiL [Flaxseed Oil] 1,000 mg PO DAILY Cinnamon Bark [Cinnamon] 500 mg PO DAILY Cider Vinegar [Apple Cider Vinegar] 300 mg PO DAILY Turmeric Root Extract [Turmeric] 500 mg PO DAILY Glucosamine Sulfate 500 mg PO DAILY Caron 500 mg PO DAILY Phytonadione [Vitamin K] 5 mg PO DAILY Multivitamins, Thera [Multivitamin (formulary)] 1 tab PO DAILY Krill Oil 500 mg PO DAILY Cranberry Fruit Extract [Cranberry] 200 mg PO DAILY Biotin 5 mg PO DAILY Ubidecarenone [Co Q-10] 100 mg PO DAILY Aloe Vera 5,000 mg PO DAILY Glycin 1 tab PO DAILY Glutathione 1 tab PO DAILY Naproxen Sod/Diphenhydramine [Aleve Pm Caplet] 1 each PO HS PRN PRN Reason: Insomnia Discharge Medication List Atorvastatin [Lipitor] 20 mg PO HS 01/06/20 [History] L.acidoph,Paracasei, B.lactis [Probiotic] 1 each PO DAILY 01/06/20 [History] Levothyroxine Sodium [Synthroid] 25 mcg PO DAILY 01/06/20 [History] Liothyronine Sodium [Cytomel] 2.5 mcg PO 1200 01/06/20 [History] Liothyronine Sodium [Cytomel] 5 mcg PO DAILY 01/06/20 [History] Melatonin 3 mg PO HS PRN 01/06/20 [History] Progesterone, Micronized [Progesterone] 200 mg PO HS 01/06/20 [History] Psyllium Husk [Metamucil] 0.4 gm PO HS 01/06/20 [History] Triamterene/Hydrochlorothiazid [Triamterene-Hctz 37.5-25 mg Tb] 1 each PO DAILY 01/06/20 [History] diphenhydrAMINE [Benadryl] 25 mg PO DAILY 01/06/20 [History] Aloe Vera 5,000 mg PO DAILY 05/11/20 [History] Biotin 5 mg PO DAILY 05/11/20 [History] Cholecalciferol [Vitamin D3 (25 Mcg = 1000 Iu)] 10,000 unit PO DAILY 05/11/20 [History] Cider Vinegar [Apple Cider Vinegar] 300 mg PO DAILY 05/11/20 [History] Cinnamon Bark [Cinnamon] 500 mg PO DAILY 05/11/20 [History] Cranberry Fruit Extract [Cranberry] 200 mg PO DAILY 05/11/20 [History] Caron 500 mg PO DAILY 05/11/20 [History] Glucosamine Sulfate 500 mg PO DAILY 05/11/20 [History] Glutathione 1 tab PO DAILY 05/11/20 [History] Glycin 1 tab PO DAILY 05/11/20 [History] Krill Oil 500 mg PO DAILY 05/11/20 [History] Magnesium 200 mg PO DAILY 05/11/20 [History] Multivitamins, Thera [Multivitamin (formulary)] 1 tab PO DAILY 05/11/20 [History] Phytonadione [Vitamin K] 5 mg PO DAILY 05/11/20 [History] Turmeric Root Extract [Turmeric] 500 mg PO DAILY 05/11/20 [History] Ubidecarenone [Co Q-10] 100 mg PO DAILY 05/11/20 [History] Vitamin C With Collagen 1 tab PO DAILY 05/11/20 [History] flaxseed oiL [Flaxseed Oil] 1,000 mg PO DAILY 05/11/20 [History] Naproxen Sod/Diphenhydramine [Aleve Pm Caplet] 1 each PO HS PRN 09/22/20 [History] Follow up Appointment(s)/Referral(s): Anitha Key MD [STAFF PHYSICIAN] - 02/14/22 Discharge Disposition: HOME SELF-CARE
[2022-01-26 09:35] VITALS: BP 134/69; PULSE 79
== END 2022-01-26 10:25 | disposition home or self-care (01) ==
LOC: ORWHC2ENDO 07:45
PROVIDERS: ATTEND Surgery Plastic and Reconstructive Surgery
DX: Z12.11 Encounter for screening for malignant neoplasm of colon (principal); D12.3 Benign neoplasm of transverse colon; K57.30 Diverticulosis of large intestine without perforation or abscess without bleeding; K64.0 First degree hemorrhoids; Z86.010 Personal history of colon polyps; Z80.0 Family history of malignant neoplasm of digestive organs; E78.5 Hyperlipidemia, unspecified; M19.90 Unspecified osteoarthritis, unspecified site; E07.9 Disorder of thyroid, unspecified; H81.09 Meniere's disease, unspecified ear; Z86.718 Personal history of other venous thrombosis and embolism; Z85.828 Personal history of other malignant neoplasm of skin; Z82.49 Family history of ischemic heart disease and other diseases of the circulatory system; Z79.899 Other long term (current) drug therapy; Z79.890 Hormone replacement therapy; Z91.012 Allergy to eggs; Z91.018 Allergy to other foods
CPT/HCPCS: 45378; J2405; J2704

== ENCOUNTER → 2022-02-22 | Outpatient (CLI) | payer MEDICARE, OTHER ==
[2022-02-22 16:06] LABS: African American GFR (CKD) >90 (>60 ml/min/1.73 sqM); Blood Urea Nitrogen 16 mg/dL (7-17); Non-African American GFR(CKD) >90 (>60 ml/min/1.73 sqM)
--- NOTE | 2022-02-22 23:11 | CT ---
EXAMINATION TYPE: CT abdomen pelvis w con CT DLP: 455.50 mGycm, Automated exposure control for dose reduction was used. DATE OF EXAM: 02/22/2022 5:37 PM COMPARISON: None CLINICAL INDICATION:Female, 66 years old with history of K57.32 Diverticulitis; TECHNIQUE: Axial CT of the abdomen and pelvis . Sagittal and coronal reformats were created on a 8th Story workstation. Contrast used:70 mL of Isovue 300 with IV Contrast, Oral contrast used: with Oral Contrast FINDINGS: LOWER CHEST: Unremarkable ABDOMEN LIVER: Few scattered subcentimeter hepatic cysts. GALLBLADDER AND BILE DUCTS: Unremarkable. PANCREAS: Unremarkable. SPLEEN: Unremarkable. ADRENAL GLANDS: Unremarkable. KIDNEYS AND URETERS: No evidence of hydronephrosis or renal calculus. The ureters are unremarkable. PELVIS BLADDER: Unremarkable REPRODUCTIVE: The uterus is surgically absent or atrophic. ABDOMEN & PELVIS STOMACH AND BOWEL: No evidence of bowel obstruction. A majority of the sigmoid colon and rectum is de compressed. No evidence for significant diverticulosis or evidence for inflammation to suggest divert iculitis. Oral contrast extends to the cecum which is layering in the pelvis. PERITONEUM: No evidence of pneumoperitoneum or free fluid. VASCULATURE: Mild atherosclerotic calcifications are present throughout the abdominal aorta and its b ranches. No evidence of aortic aneurysm. MUSCULOSKELETAL: No acute osseous abnormalities. There is grade 2 anterolisthesis of L5 on S1 with bi lateral spondylolysis. LYMPH NODES: No gross evidence for lymphadenopathy. SOFT TISSUE/ABDOMINAL WALL: Unremarkable IMPRESSION: 1. No evidence for acute abdominal process or evidence of diverticulitis. 2. Grade 2 anterolisthesis of L5 on S1 with bilateral spondylolysis.
== END | disposition home or self-care (01) ==
LOC: RADCTMAIN 15:26
PROVIDERS: ATTEND Surgery Plastic and Reconstructive Surgery
DX: M43.17 Spondylolisthesis, lumbosacral region (principal)
CPT/HCPCS: 82565; 84520; 74177; 36415; Q9967

== ENCOUNTER → 2022-07-28 | Outpatient (CLI) | payer MEDICARE, OTHER ==
--- NOTE | 2022-07-31 18:07 | MM ---
Reason for Exam: Screening (asymptomatic). Last screening mammogram was performed 12 month(s) ago. Patient History: Menarche at age 14. First Full-Term at age 31. Late child-bearing (after 31). Left ovary removed at age 45. Right ovary removed at age 45. Hysterectomy at age 45. Postmenopausal. Other cancer. Currently using Estrogen, beginning at age 46 for 20 years. Currently using Progesterone, beginning at age 46 for 20 years. 2000, Benign Ultrasound-Guided Core Biopsy on the left side. Bilateral Benign Excisional Biopsy. Paternal aunt had breast cancer, age 50. Paternal aunt had breast cancer, age 50. Risk Values: Korina 5 year model risk: 3.5%. NCI Lifetime model risk: 12.1%. Prior Study Comparison: 03/13/2019 Screening Mammogram, Unknown. 05/26/2020 Bilateral Screening Mammogram, [facility]. 07/27/2021 Bilateral Screening Mammogram, [facility]. Tissue Density: The breast tissue is heterogeneously dense. This may lower the sensitivity of mammography. Findings: Analyzed By CAD. Microclip left breast from prior biopsy. Areas of nodular asymmetric density left MLO view are unchanged. Increasing grouped regional microcalcifications subareolar right breast. Further magnification views recommended to further assess morphology. Otherwise, no significant change. Overall Assessment: Incomplete: need additional imaging evaluation, BI-RAD 0 Management: Special View Mammogram of the right breast. Including mag CC, mag lateral, and 3-D lateral views. [facility] will attempt to contact patient to return for supplemental views and ultrasound if indicated. Electronically signed and approved by: Gay Cadena M.D. Radiologist
== END | disposition home or self-care (01) ==
LOC: RADMAMWWP 13:05
PROVIDERS: ATTEND Family Medicine
DX: Z12.31 Encounter for screening mammogram for malignant neoplasm of breast (principal); Z78.0 Asymptomatic menopausal state; Z80.3 Family history of malignant neoplasm of breast; Z90.721 Acquired absence of ovaries, unilateral
CPT/HCPCS: 77063; 77067

== ENCOUNTER → 2022-08-09 | Outpatient (CLI) | payer MEDICARE, OTHER ==
--- NOTE | 2022-08-09 10:27 | MM ---
Reason for Exam: Additional evaluation requested from abnormal screening. Last screening mammogram was performed less than 1 month ago. Patient History: Menarche at age 14. First Full-Term at age 31. Late child-bearing (after 31). Left ovary removed at age 45. Right ovary removed at age 45. Hysterectomy at age 45. Postmenopausal. Other cancer. Currently using Estrogen, beginning at age 46 for 20 years. Currently using Progesterone, beginning at age 46 for 20 years. 2000, Benign Ultrasound-Guided Core Biopsy on the left side. Bilateral Benign Excisional Biopsy. Paternal aunt had breast cancer, age 50. Paternal aunt had breast cancer, age 50. Risk Values: Korina 5 year model risk: 3.5%. NCI Lifetime model risk: 12.1%. Tissue Density: Right: The breast tissue is extremely dense which could obscure a lesion on mammography. Findings: Analyzed By CAD. There are multiple heterogenous calcifications in the anterior lower inner aspect right breast. These are new from 2020. Tear Tech core biopsy is recommended. There are a few additional calcifications which were present previously in the subareolar right breast. Overall Assessment: Suspicious, BI-RAD 4 Management: Stereotactic Core Biopsy of the right breast. A clinical breast exam by your physician is recommended on an annual basis and results should be correlated with mammographic findings. This exam should not preclude additional follow-up of suspicious palpable abnormalities. Results were given to the patient verbally at the time of exam. Electronically signed and approved by: Sarwat Nino D.O. Radiologis
== END | disposition home or self-care (01) ==
LOC: RADMAMWWP 10:01
PROVIDERS: ATTEND Family Medicine
DX: R92.8 Other abnormal and inconclusive findings on diagnostic imaging of breast (principal); Z78.0 Asymptomatic menopausal state; Z80.3 Family history of malignant neoplasm of breast; Z98.890 Other specified postprocedural states
CPT/HCPCS: 77065; G0279; 77061

== ENCOUNTER → 2022-11-02 | Outpatient (CLI) | payer MEDICARE, OTHER ==
[2022-11-02 11:30] VITALS: BP 153/99; PULSE 99; RESP 17; TEMP 98.2
--- NOTE | 2022-11-02 11:49 | P.PN ---
Subjective Progress Note Date: 11/02/22 Principal diagnosis: DCIS right breast, PALB 2 mutation DCIS right breast Anitha is a 67-year-old white female seen in consultation for Dr. Vidales regarding a radiographic abnormality of the right breast. She had a bilateral mammogram on [id number] which showed heterogeneously dense breast. Additionally a microchip was noted in the left breast from a prior biopsy. Increasing group regional microcalcification subareolar right breast were identified. Additional views of the right breast were performed on 1422. This revealed microcalcifications in the anterior lower inner aspect right breast these were new from 2020. Stereotactic core biopsy was recommended. She does not feel any lumps masses or nodules of concern in either breast. She has had a stereotactic core biopsy of the left breast in the past which was benign. This was over 20 years ago. She has had bilateral breast biopsies in the remote past and had bilateral fibroadenomas removed. She has not had any recent trauma or infection in the breast. She has not had any other surgery on the breast. Patient is using progesterone and estradiol, and DHEA testosterone cream. This was for a low libido. She has been on these for 15 years. This is through Dr. Vidales's office. Stero core biopsy of the right breast done on 09-14-22. Her pathology was reviewed and showed DCIS grade 2/3, ER+, NH+ Area of involvement is behind the nipple areolar complex and is approximately 2 cm. This was reviewed with Dr. Dick. Genetic testing was done and the patient is PALB2 (+) Note Dr. Siddiqui reviewed 09-22-22 Caffeine: 1 1/2 cups coffee/day nicotine: none chocolate: occasional BCP: 10 years, stopped at age 41 Family History: paternal grandmother: colon cancer paternal aunt: breast cancer Hormonal History: menarche: 14 [id number], age at first live : 31 breat fed: yes menopause: 44 Surgical History: PRATIBHA: 2000 for endometriosis left knee replacement SCC right shoulder 5 years ago Medical History: high cholesterol hypothyroid Social History: smoke: none alcohol: wine QOD drugs: none - Constitutional Constitutional: Reports sweats - EENT Eyes: denies blurred vision, denies pain Ears: left: decreased hearing (meniers disease), deny: tinnitus Ears, nose, mouth and throat: Reports headache, Denies sore throat - Breasts Breasts: bilateral: as per HPI - Cardiovascular Comment: high risk heart disease/ high cholesterol; heart rate to A. fib in her sleep she is not treated for this - Respiratory Comment: COVID cough since June 2022 Respiratory: Denies cough - Gastrointestinal Comment: IBS ?; colonoscopy 1 year ago was OK Gastrointestinal: Denies abdominal pain, Denies diarrhea, Denies nausea, Denies vomiting - Genitourinary (Female) Genitourinary: Denies dysuria, Denies hematuria - Menstruation Menstruation: Reports post hysterectomy - Musculoskeletal Musculoskeletal: Reports as per HPI - Integumentary Integumentary: Denies pruritus, Denies rash - Neurological Neurological: Denies numbness, Denies weakness - Psychiatric Psychiatric: Denies anxiety, Denies depression - Endocrine Comment: hypothyroid Endocrine: Reports fatigue, Denies weight change - Hematologic/Lymphatic Comment: none - Allergic/Immunologic Allergic/Immunologic: Reports seasonal allergies Past Medical History Past Medical History: Cancer, Hyperlipidemia, Osteoarthritis (OA), Thyroid Disorder Additional Past Medical History / Comment(s): hx. squamous cancer, hx. superficial blood clot in leg >20 yrs. ago, Meniere's disease, occasional irregular heart beat, tends to run low BP History of Any Multi-Drug Resistant Organisms: None Reported Past Surgical History: Hysterectomy, Joint Replacement, Orthopedic Surgery Additional Past Surgical History / Comment(s): lt. meniscus surg., multiple sinus surgeries, left knee replaced 2019, COLONOSCOPY Past Anesthesia/Blood Transfusion Reactions: Motion Sickness, Postoperative Nausea & Vomiting (PONV) Additional Past Anesthesia/Blood Transfusion Reaction / Comment(s): severe PONV & experienced lingering headache for 2-3 days following general anesthesia, did ok after knee replacement Past Psychological History: No Psychological Hx Reported Smoking Status: Never smoker Past Alcohol Use History: Occasional Past Drug Use History: None Reported - Past Family History Father Family Medical History: Deep Vein Thrombosis (DVT) Additional Family Medical History / Comment(s): CABG Mother Family Medical History: Coronary Artery Disease (CAD), Deep Vein Thrombosis (DVT) Sister(s) Additional Family Medical History / Comment(s): aneursym x3 Medications and Allergies Home Medications Medication Instructions Recorded Confirmed Type Atorvastatin [Lipitor] 20 mg PO HS 01/06/20 09/14/22 History L.acidoph,Paracasei, B.lactis 1 each PO DAILY 01/06/20 09/14/22 History [Probiotic] Levothyroxine Sodium [Synthroid] 25 mcg PO DAILY 01/06/20 09/14/22 History Liothyronine Sodium [Cytomel] 2.5 mcg PO 1200 01/06/20 09/14/22 History Liothyronine Sodium [Cytomel] 5 mcg PO DAILY 01/06/20 09/14/22 History Melatonin 3 mg PO HS PRN 01/06/20 09/14/22 History Progesterone, Micronized 200 mg PO HS 01/06/20 09/14/22 History [Progesterone] Psyllium Husk [Metamucil] 0.4 gm PO HS 01/06/20 09/14/22 History Triamterene/Hydrochlorothiazid 1 each PO DAILY 01/06/20 09/14/22 History [Triamterene-Hctz 37.5-25 mg Tb] diphenhydrAMINE [Benadryl] 25 mg PO DAILY 01/06/20 09/14/22 History Aloe Vera 5,000 mg PO DAILY 05/11/20 09/14/22 History Biotin 5 mg PO DAILY 05/11/20 09/14/22 History Cholecalciferol [Vitamin D3 (25 10,000 unit PO DAILY 05/11/20 09/14/22 History Mcg = 1000 Iu)] Cider Vinegar [Apple Cider Vinegar] 300 mg PO DAILY 05/11/20 09/14/22 History Cinnamon Bark [Cinnamon] 500 mg PO DAILY 05/11/20 09/14/22 History Cranberry Fruit Extract [Cranberry] 200 mg PO DAILY 05/11/20 09/14/22 History Caron 500 mg PO DAILY 05/11/20 09/14/22 History Glucosamine Sulfate 500 mg PO DAILY 05/11/20 09/14/22 History Glutathione 1 tab PO DAILY 05/11/20 09/14/22 History Glycin 1 tab PO DAILY 05/11/20 09/14/22 History Krill Oil 500 mg PO DAILY 05/11/20 09/14/22 History Magnesium 200 mg PO DAILY 05/11/20 09/14/22 History Multivitamins, Thera [Multivitamin 1 tab PO DAILY 05/11/20 09/14/22 History (formulary)] Phytonadione [Vitamin K] 5 mg PO DAILY 05/11/20 09/14/22 History Turmeric Root Extract [Turmeric] 500 mg PO DAILY 05/11/20 09/14/22 History Ubidecarenone [Co Q-10] 100 mg PO DAILY 05/11/20 09/14/22 History Vitamin C With Collagen 1 tab PO DAILY 05/11/20 09/14/22 History flaxseed oiL [Flaxseed Oil] 1,000 mg PO DAILY 05/11/20 09/14/22 History Naproxen Sod/Diphenhydramine 1 each PO HS PRN 09/22/20 09/14/22 History [Aleve Pm Caplet] Allergies Allergy/AdvReac Type Severity Reaction Status Date / Time gluten Allergy Nausea & Verified 09/14/22 07:16 Vomiting black pepper AdvReac Unknown Verified 09/14/22 07:16 egg yolk AdvReac Nausea & Verified 09/14/22 07:16 Vomiting Objective - Constitutional General appearance: Present: cooperative - EENT Eyes: Present: EOMI ENT: Present: hearing grossly normal - Neck Neck: Present: normal ROM - Respiratory Respiratory: bilateral: CTA - Cardiovascular Rhythm: regular Heart sounds: normal: S1, S2 - Gastrointestinal General gastrointestinal: Present: soft - Integumentary Integumentary: Present: normal turgor - Musculoskeletal Musculoskeletal: Present: gait normal - Psychiatric Psychiatric: Present: A&O x's 3, appropriate affect, intact judgment & insight - Additional findings Additional findings: Breast Exam: BRA: 36C Inspection: Bilateral grade 2 ptosis Palpation: Right breast: Multi-positional exam fibrocystic changes no dominant masses or nodules of concern; echymosis right breast related to stereotactic core biopsy in the periareolar area Right axilla: No adenopathy of concern Left breast: Multi-positional exam fibrocystic changes no dominant masses or nodules of concern Left axilla: No adenopathy of concern Assessment and Plan Assessment: Impression: high cholesterol hypothyroid 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 We discussed surgical options as well as radiation oncology and medical oncology options. The lesion is ER/NH positive and the patient has been taking estrogen replacement therapy. She has stopped taking this at this time. She is going to follow with medical oncology to see if there is something that she can take. At this time they're most likely going to opt for a bilateral nipple sparing mastectomy. CC: Dr. Vidales
== END ==
LOC: WWCWWP 11:16
PROVIDERS: ATTEND Surgery
DX: D05.11 Intraductal carcinoma in situ of right breast (principal); E03.9 Hypothyroidism, unspecified; E78.00 Pure hypercholesterolemia, unspecified; M19.90 Unspecified osteoarthritis, unspecified site; E07.9 Disorder of thyroid, unspecified; C80.1 Malignant (primary) neoplasm, unspecified; Z91.018 Allergy to other foods; Z15.01 Genetic susceptibility to malignant neoplasm of breast; Z91.012 Allergy to eggs

== ENCOUNTER 2022-11-14 07:17 | Inpatient (IN) | payer MEDICARE, OTHER ==
[~2022-11-14 07:17] MED LIST changes: +HEPARIN SODIUM,PORCINE/PF 5,000 UNIT/0.5 ML SYRINGE SQ PRN; -LACTATED RINGERS 1,000 ML IV SCH; +Pre Op ABX Message 1 EACH MISC MISCELLANE ONE
[2022-11-14] MEDS ORDERED: DEXAMETHASONE SOD PHOSPHATE 4 MG/ML 1 ML VIAL IV ONE (07:24)
[2022-11-14] MEDS ORDERED: LIDOCAINE 1% (10MG/ML) FOR IV START INTRADERMA PRN (07:24)
[2022-11-14] MEDS ORDERED: ONDANSETRON 4 MG/2 ML VIAL IVP ONE (07:24)
[2022-11-14] MEDS: LACTATED RINGERS 1,000 ML IV SCH (07:51)
[2022-11-14 07:55] LABS: Basophils % (A) 0 %; Eosinophils # (A) 0.6 k/uL (0-0.7); Eosinophils % (A) 7 %; HCT 41.7 % (34.0-46.0); HGB 14.5 gm/dL (11.4-16.0); Lymphocytes # (A) 2.1 k/uL (1.0-4.8); Lymphocytes % (A) 25 %; MCH 34.3 pg (25.0-35.0); MCHC 34.7 g/dL (31.0-37.0); MCV 98.9 fL (80.0-100.0); Mean Platelet Volume 6.5; Monocytes # (A) 0.4 k/uL (0-1.0); Monocytes % (A) 5 %; Neutrophils % (A) 61 %; Platelet Count 413 k/uL (150-450); RBC 4.21 m/uL (3.80-5.40); RDW 11.9 % (11.5-15.5); WBC 8.3 k/uL (3.8-10.6)
[2022-11-14 08:13] LABS: ALT 30 U/L (4-34); AST 43 U/L (14-36); African American GFR (CKD) >90 (>60 ml/min/1.73 sqM); Alkaline Phosphatase 73 U/L (38-126); Anion Gap 7 mmol/L; Blood Urea Nitrogen 12 mg/dL (7-17); Calcium 9.8 mg/dL (8.4-10.2); Carbon Dioxide 28 mmol/L (22-30); Chloride 104 mmol/L (98-107); Glucose 100 mg/dL (74-99); Non-African American GFR(CKD) >90 (>60 ml/min/1.73 sqM); Sodium 139 mmol/L (137-145); Total Bilirubin 1.1 mg/dL (0.2-1.3)
[2022-11-14 08:27] LABS: Potassium 3.7 mmol/L (3.5-5.1)
--- NOTE | 2022-11-14 08:52 | P.NAPBC ---
NAPBC Queries - NAPBC Queries Was patient's case review presented at [facility] tumor board? If no, comment.: Yes Was patient's pathology reviewed at [facility]? If no, comment.: Yes Was breast conservation surgery offered? If no, comment.: Yes Was sentinel node biopsy offered? If no, comment.: Yes Was diagnosis confirmed by percutaneous core biopsy? If no, comment.: Yes Is patient mastectomy patient?: Yes Was a preop referral to reconstructive surgeon offered?: Yes Clinical Stage: right breast stage 0
[2022-11-14] MEDS ORDERED: LIDOCAINE 2% INJ 20 MG/ML (2 ML VIAL) ONE (09:10)
[2022-11-14] MEDS ORDERED: HYDROmorphone (PF) 1 MG/ML ONE (09:10)
[2022-11-14] MEDS ORDERED: fentaNYL (PF) 50 MCG/ML 2 ML AMP ONE (09:10)
[2022-11-14] MEDS ORDERED: NEOSTIGMINE 1 MG/ML 10 ML VIAL ONE (09:10)
[2022-11-14] MEDS ORDERED: HEPARIN SODIUM,PORCINE 5,000 UNIT/ML 1 ML VIAL ONE (09:10)
[2022-11-14] MEDS ORDERED: SODIUM CHLORIDE 0.9% 50 ML with ceFAZolin 2,000 MG IV ONE ×2 (09:10)
[2022-11-14] MEDS ORDERED: GLYCOPYRROLATE 0.2 MG/ML 2 ML VIAL ONE (09:10)
[2022-11-14] MEDS ORDERED: KETOROLAC 15 MG/ML 1 ML VIAL ONE (09:10)
[2022-11-14] MEDS ORDERED: diphenhydrAMINE 50 MG/ML 1 ML VIAL ONE (09:10)
[2022-11-14] MEDS ORDERED: ONDANSETRON 4 MG/2 ML VIAL ONE (09:10)
[2022-11-14] MEDS ORDERED: ROCURONIUM 10 MG/ML (5 ML VIAL) IV ONE (09:10)
[2022-11-14] MEDS ORDERED: PROPOFOL 10 MG/ML 20 ML VIAL IV ONE (09:10)
[2022-11-14] MEDS ORDERED: MIDAZOLAM 2 MG/2 ML VIAL ONE (09:10)
[2022-11-14] MEDS ORDERED: LACTATED RINGERS 1,000 ML IV ONE ×2 (10:30→12:29)
--- NOTE | 2022-11-14 11:20 | P.OP ---
Date of Procedure: 11/14/22 Preoperative Diagnosis: Right breast ductal carcinoma in situ Postoperative Diagnosis: Same Procedure(s) Performed: Bilateral nipple sparing mastectomy, right sentinel node biopsy, bilateral prepectoral implant reconstruction Anesthesia: LAZARA Surgeon: Alley Jimenez Estimated Blood Loss (ml): 100 IV fluids (ml): 1,300 Pathology: other (Bilateral breast tissue, right sentinel lymph node) Condition: stable Disposition: floor Indications for Procedure: Right breast ductal carcinoma in situ Operative Findings: Dense breast tissue Description of Procedure: The patient was seen in the preoperative area by radiology and radio-active tracer was injected into the periareolar area on the right. Additionally she was seen by plastic surgery Dr. Hurley and skin markings were placed. She was brought to the operative suite. Following induction of anesthesia she was again marked for a nipple sparing mastectomy by plastic surgery. Following this both breast and the right axilla were prepped and draped in a sterile fashion. The left breast was approached initially. Using an inferior incision which curved from the areolar to the lateral aspect of the breast an incision was made. Medial, lateral, superior and inferior skin flaps were developed. The dissection was performed between the breast and subcutaneous tissue. At the level of the nipple areolar complex additional tissue was cleared from the nipple. The dissection was performed using the electrocautery device as well as the Harmonic scalpel. Dissection was performed down onto the pectoralis major muscle. The breast was then brought from superior and medial to lateral off the pectoralis fascia. At the lateral border of the pectoralis muscle the tissue was divided using the Harmonic scalpel. The wound was well irrigated. The wound was packed with packs after we were assured that hemostasis was attained. The short suture was placed superior on the breast and a long suture was placed lateral on the left breast. Additionally the core of tissue from under the nipple was sent to pathology. The right side was then approached. The sentinel node biopsy area was approached initially. Using the neoprobe the area of greatest radioactivity was identified. An incision was made at this site. The incision was carried down into the axillary tissue. A radioactive lymph node was identified. This was grasped using an Allis clamp. The dissection was performed using the electrocautery device as well as the Harmonic scalpel. The lymph node was removed. The 10 second count on the lymph node was 9280. Background 10 second count was 30. After we were assured that hemostasis was attained the deep tissues were closed using 3-0 Vicryl suture. This was followed by closure of the subcutaneous tissue with 3-0 Vicryl suture. This was followed by closure of the skin with 4-0 Monocryl. The left breast was then approached. An inferior incision which curved from the areola to the lateral aspect of the breast was utilized. Lateral, superior, inferior, and medial skin flaps were developed. The dissection was performed between the breast and subcutaneous tissue. At the level of the nipple areolar complex additional tissue was cleared from the nipple. Dissection was performed using electrocautery device as well as the Harmonic scalpel. Dissection was performed onto the pectoralis major muscle. The breast was then brought from superior and medial to the lateral aspect of the pectoralis muscle off the pectoralis fascia. At the lateral border of the pectoralis muscle the tissues were divided using the Harmonic scalpel. The wound was well irrigated. Following this after we were assured that hemostasis was attained the wound was packed with packs. A short suture was placed superiorly on the right breast and a long suture was placed laterally. Additionally a core of tissue from under the nipple was sent to pathology. The patient tolerated this portion of the procedure in stable condition. Dr. Rasheed from plastic surgery then entered to place the prepectoral expanders.
[2022-11-14] MEDS ORDERED: HYDROmorphone 1 MG/ML 1 ML SYRINGE IVP PRN (11:27)
[2022-11-14] MEDS ORDERED: NALOXONE 0.4 MG/ML 1 ML VIAL IV PRN (11:27)
--- NOTE | 2022-11-14 12:00 | NM ---
EXAMINATION TYPE: NM sentinel node injection DATE OF EXAM: 11/14/2022 COMPARISON: NONE CLINICAL INDICATION:Female, 67 years old with history of D05.11; TECHNIQUE AND FINDINGS: The procedure of sentinel lymph node injection was explained to the patient. The benefits, alternatives, and risks were discussed. An informed consent was then obtained. Overlying skin is cleaned with sterile alcohol. Following this, 520 uCi Tc99m Tilmanocept was inject ed in the upper outer aspect of the right nipple intradermally. The patient tolerated the procedure well without any immediate complication. The patient was kept in the radiology department for short stay after the procedure and then taken to surgery for surgical p rocedure what is presumed intraoperative gamma probe will be used for sentinel lymph node detection. IMPRESSION: Right breast radiotracer injection for sentinel node localization as above.
[2022-11-14] MEDS: HYDROmorphone 0.5 MG/0.5 ML SYRINGE IVP PRN ×2 (13:18→13:38)
[2022-11-14] MEDS: SODIUM CHLORIDE 0.9% 1,000 ML IV SCH (14:52)
[2022-11-14] MEDS: HEPARIN SODIUM,PORCINE/PF 5,000 UNIT/0.5 ML SYRINGE SQ SCH (16:35)
[2022-11-14] MEDS ORDERED: MELATONIN 3 MG TABLET PO PRN (18:22)
[2022-11-14] MEDS ORDERED: KETOROLAC 15 MG/ML 1 ML VIAL IVP PRN (19:05)
--- NOTE | 2022-11-14 19:05 | P.CONS ---
History of Present Illness - Reason for Consult Consult date: 11/14/22 - History of Present Illness Patient is a 67-year-old female with PMH of Mnire's disease, hypothyroidism, chronic sinusitis, history of breast cancer that presents to [facility] for elective surgery. She underwent bilateral nipple sparing mastectomy, right sentinel node biopsy, bilateral prepectoral implant reconstruction for history of right breast ductal carcinoma in situ. [facility] has been consulted for medical management of this patient. Patient reports 9 out of 10 pain at the site of surgery. She would like to avoid opiates if at all possible. She has not urinated nor passed gas. She has no other complaints. General: non toxic, no distress, appears at stated age Derm: warm, dry Head: atraumatic, normocephalic, symmetric Eyes: EOMI, no lid lag, anicteric sclera Mouth: no lip lesion, mucus membranes moist Cardiovascular: S1S2 reg, no murmur, chest binder in place with bilateral SALOMÓN drain with serosanguineous fluid. Lungs: CTA bilateral, no rhonchi, no rales , no accessory muscle use Ext: no gross muscle atrophy, no edema, no contractures Neuro: no focal neuro deficits Psych: Alert, oriented, appropriate affect Mnire's disease Hypothyroidism Dyslipidemia Chronic sinusitis Based on my assessment of this patient, this patient meets a moderate complexity level of care. I have reviewed the following sap solution manager consultant notes: Operative note 11/14, bilateral nipple sparing mastectomy, right sentinel node biopsy, bilateral prepectoral implant reconstruction. I have reviewed the results of the following tests: CBC is unremarkable. CMP shows creatinine is 0.42, glucose 100 and AST of 43. I have ordered the following tests: CBC ordered for tomorrow morning. I have discussed the care of this patient with the following independent historian: None. I have independently interpreted the following test below: None. I have discussed the management of this patient with the following physician: None. This patient has a moderate risk of morbidity due to the following reasons: Patient has a chronic diagnosis of Mnire's disease, hypothyroidism, chronic sinusitis, dyslipidemia and history of breast cancer. Restart Lipitor 20 my grams by mouth at bedtime for history of dyslipidemia. Restart Synthroid 25 g by mouth daily, Liothyronine 2.5 mcg and 5 mcg by mouth daily. Restart melatonin 3 mg by mouth at bedtime. Restart triamterene/hydrochlorothiazide 37.5-25 mg by mouth daily. Heparin SQ for DVT prophylaxis. Patient would like to be FULL CODE. Past Medical History Past Medical History: Cancer, Hyperlipidemia, Osteoarthritis (OA), Thyroid Disorder Additional Past Medical History / Comment(s): hx. squamous cancer, hx. superficial blood clot in leg >20 yrs. ago, Meniere's disease, occasional i rregular heart beat, tends to run low BP, no chemo stage 0 breast ca. positive pal B2, Hypothyroid, History of Any Multi-Drug Resistant Organisms: None Reported Past Surgical History: Hysterectomy, Joint Replacement, Orthopedic Surgery Additional Past Surgical History / Comment(s): lt. meniscus surg., multiple sinus surgeries, left knee replaced 2019, COLONOSCOPY Past Anesthesia/Blood Transfusion Reactions: Motion Sickness, Postoperative Nausea & Vomiting (PONV) Additional Past Anesthesia/Blood Transfusion Reaction / Comm: severe PONV & experienced lingering headache for 2-3 days following general anesthesia, did ok after knee replacement Past Psychological History: Anxiety Additional Psychological History / Comment(s): recent due to diagnosis Smoking Status: Never smoker Past Alcohol Use History: Occasional Past Drug Use History: None Reported - Past Family History Father Family Medical History: Deep Vein Thrombosis (DVT) Additional Family Medical History / Comment(s): CABG Mother Family Medical History: Coronary Artery Disease (CAD), Deep Vein Thrombosis (DVT) Sister(s) Additional Family Medical History / Comment(s): aneursym x3 Medications and Allergies Home Medications Medication Instructions Recorded Confirmed Type Atorvastatin [Lipitor] 20 mg PO HS 01/06/20 11/14/22 History L.acidoph,Paracasei, B.lactis 1 each PO DAILY 01/06/20 11/09/22 History [Probiotic] Levothyroxine Sodium [Synthroid] 25 mcg PO DAILY 01/06/20 11/14/22 History Liothyronine Sodium [Cytomel] 2.5 mcg PO 1200 01/06/20 11/14/22 History Liothyronine Sodium [Cytomel] 5 mcg PO DAILY 01/06/20 11/09/22 History Melatonin 3 mg PO HS PRN 01/06/20 11/09/22 History Psyllium Husk [Metamucil] 0.4 gm PO HS 01/06/20 11/09/22 History Triamterene/Hydrochlorothiazid 1 each PO DAILY 01/06/20 11/09/22 History [Triamterene-Hctz 37.5-25 mg Tb] diphenhydrAMINE [Benadryl] 25 mg PO DAILY 01/06/20 11/09/22 History Aloe Vera 5,000 mg PO DAILY 05/11/20 11/09/22 History Biotin 5 mg PO DAILY 05/11/20 11/09/22 History Cholecalciferol [Vitamin D3 (25 10,000 unit PO DAILY 05/11/20 11/09/22 History Mcg = 1000 Iu)] Cider Vinegar [Apple Cider Vinegar] 300 mg PO DAILY 05/11/20 11/09/22 History Cinnamon Bark [Cinnamon] 500 mg PO DAILY 05/11/20 11/09/22 History Cranberry Fruit Extract [Cranberry] 200 mg PO DAILY 05/11/20 11/09/22 History Caron 500 mg PO DAILY 05/11/20 11/09/22 History Glutathione 1 tab PO DAILY 05/11/20 11/09/22 History Glycin 1 tab PO DAILY 05/11/20 11/09/22 History Krill Oil 500 mg PO DAILY 05/11/20 11/09/22 History Magnesium 200 mg PO DAILY 05/11/20 11/09/22 History Phytonadione [Vitamin K] 5 mg PO DAILY 05/11/20 11/09/22 History Turmeric Root Extract [Turmeric] 500 mg PO DAILY 05/11/20 11/09/22 History Ubidecarenone [Co Q-10] 100 mg PO DAILY 05/11/20 11/09/22 History Vitamin C With Collagen 1 tab PO DAILY 05/11/20 11/09/22 History flaxseed oiL [Flaxseed Oil] 1,000 mg PO DAILY 05/11/20 11/09/22 History Naproxen Sod/Diphenhydramine 1 each PO HS PRN 09/22/20 11/09/22 History [Aleve Pm Caplet] HYDROcodone/APAP 5-325MG [[place] 5] 1 - 2 each PO Q4H PRN #20 tab 11/14/22 Rx HYDROcodone/APAP 5-325MG [[place] 5] 1 - 2 each PO Q4H PRN #20 tab 11/14/22 Rx Potassium Chloride meq PO 11/14/22 History Allergies Allergy/AdvReac Type Severity Reaction Status Date / Time gluten Allergy Nausea & Verified 11/14/22 07:27 Vomiting black pepper AdvReac Unknown Verified 11/14/22 07:27 egg yolk AdvReac Nausea & Verified 11/14/22 07:27 Vomiting Physical Exam Vitals: Vital Signs Temp Pulse Resp BP Pulse Ox 11/14/22 16:15 97.2 F L 102 H 16 140/82 97 11/14/22 15:45 95 16 130/88 97 11/14/22 15:15 92 16 135/80 93 L 11/14/22 15:00 87 16 146/84 97 11/14/22 14:45 83 16 138/87 95 11/14/22 14:30 98.2 F 83 16 151/78 94 L 11/14/22 14:15 81 16 138/62 94 L 11/14/22 14:00 83 16 142/74 93 L 11/14/22 13:45 88 16 152/80 98 11/14/22 13:30 82 16 155/81 98 11/14/22 13:15 79 16 135/73 98 11/14/22 13:00 86 16 135/70 100 11/14/22 12:45 83 16 135/74 100 11/14/22 12:38 97.5 F L 84 16 120/71 98 11/14/22 07:48 97.5 F L 97 16 143/69 98 Intake and Output 11/14/22 11/14/22 11/14/22 06:59 14:59 22:59 Intake Total 2350 Output Total 550 325 Balance 1800 -325 Intake: IV 2350 Output: Drainage 325 Left 100 Right 225 Urine 400 Estimated Blood Loss 150 Other: Weight 57.7 kg Results CBC & Chem 7: 11/14/22 07:44 11/14/22 07:44 Labs: Abnormal Lab Results - Last 24 Hours (Table) 11/14/22 Range/Units 07:44 Creatinine 0.42 L (0.52-1.04) mg/dL Glucose 100 H (74-99) mg/dL AST 43 H (14-36) U/L
--- NOTE | 2022-11-14 20:05 | OP ---
OPERATIVE REPORT DATE OF SERVICE : 11/14/2022 PREOPERATIVE DIAGNOSES: 1. Acquired loss, right and left breasts. 2. Breast cancer. POSTOPERATIVE DIAGNOSES: 1. Acquired loss, right and left breasts. 2. Breast cancer. PROCEDURES PERFORMED: 1. Immediate reconstruction, left breast following mastectomy with insertion of tissue programs manager and subsequent outpatient expansion. 2. Immediate reconstruction, right breast following mastectomy with insertion of tissue programs manager and subsequent outpatient expansion. 3. Implantation of reconstructive graft for right and left breast reconstructions. INDICATIONS FOR PROCEDURE: The patient is a 67-year-old female with diffuse ductal carcinoma in situ, plans to undergo left-sided prophylactic mastectomy, nipple-sparing, and nipple-sparing right- sided mastectomy along with right sentinel node excision. The patient is referred to my care by Dr. Jimenez, who will do her mastectomy procedures. The patient desires breast reconstructions and elected to proceed with a tissue programs manager style technique and is hopeful for prepectoral reconstruction with use of reconstructive graft. The patient is aware of potential risks and complications of the surgery including but not limited to hematoma, seroma, wound healing problems among others, and she is also aware of the staged nature of breast reconstruction surgery. She has requested to perform the surgeries. DESCRIPTION OF PROCEDURE: The patient was seen in the preoperative area, markings were made, procedure was reviewed, and all questions were answered. She was transported to the operating room, where she was placed in supine position. Following induction of general endotracheal anesthesia, the patient was prepped and draped in usual fashion. Dr. Jimenez and her surgical team then proceeded with the left mastectomy. Once the procedure was complete, I entered the operative suite, where Dr. Jimenez and her team proceeded with the right mastectomy and sentinel lymph node excision procedures. The left mastectomy wound was open with no active bleeding. Cavity was irrigated. Additional dissection was required to optimize for position of programs manager for breast reconstruction. This was performed with cautery elevating skin and subcutaneous tissue off the muscle fascia where necessary. Once this was complete, the cavity was sized, and tissue programs manager was opened on the field for the left side. Both expanders today were the same model from [employer] [id number]-EV-08-[id number], 600 mL. The left-sided serial number was [id number], and later when opened, the right-sided serial number was [id number]. Once the programs manager was opened, all air was removed. It was irrigated with saline. Initially, 300 mL of air instilled for test fitting. This was too much volume to allow for tension-free closure of the skin. 100 mL of air was removed, and this appeared appropriate for maximizing volume but not putting tension on the skin for closure. The programs manager was now removed, re-irrigated with saline, and covered with reconstructive graft. SurgiMend PRS mesh 10 x 20 cm was opened on the field, revitalized in room temperature saline, and pre-stretched multiple times. Once ready, the SurgiMend PRS mesh was placed over the anterior surface of the programs manager and secured to the 6 individual suture tabs with 3-0 Vicryl suture. The second programs manager was now opened on the field. This one was for the right side and again only handled by surgeon. All air extracted and then filled with 200 mL of air. The device was then covered with the second piece of SurgiMend PRS mesh that had been opened and revitalized in room temperature saline as well as pre-stretched multiple times. The SurgiMend PRS was secured to the 6 suture tab points using 3-0 Vicryl suture. Both expanders were now prepared and covered with reconstructive graft. Once the right-sided mastectomy and sentinel node procedures were complete, I evaluated the right mastectomy site. Irrigation was performed. There was no active bleeding. Additional dissection was required to optimize positioning of the programs manager, and this was completed with cautery. Once completed, both sides were irrigated, and final inspection was made for hemostasis which was optimal. The right and left-sided expanders were now inserted into their respective reconstructive cavities. Once optimally positioned, they were secured to the chest wall using the 6 tab suture secure points with 2-0 Vicryl suture. 19 round Naldo channel drains were opened on the field, inserted in the reconstructive cavity on the right and left side, brought out through separate stab incisions in the right and left anterolateral chest wall, and sutured in place with 2-0 Prolene. The drains were cut to appropriate length. Mastectomy incisions were now closed, first temporarily proximally with marcelle to set tension and then placing deep subcutaneous sutures with interrupted 4-0 Monocryl in the space followed by approximation of the deep dermis using inverted interrupted 4-0 Monocryl and then closure of the superficial dermis and epidermis with running 5-0 Prolene. Surgical winston were cleansed with saline and dried, and postoperative bandages were placed using sterile 1-inch paper tape over suture repairs and Kerlix squares secured with 3M Medipore tape. The drains were connected to closed bulb suction and patent. A size 4 white mammary support was in position. After this, the patient was awakened, extubated, and transferred to the recovery room in good condition with stable vital signs. The estimated blood loss from the procedure was 50 mL for my portion. The final fill in the expanders was 200 mL of air. There were no complications. MMODL / IJN: [id number] /
[2022-11-14] MEDS: ATORVASTATIN 20 MG TAB PO SCH (22:39)
[2022-11-15] MEDS: HEPARIN SODIUM,PORCINE/PF 5,000 UNIT/0.5 ML SYRINGE SQ SCH ×3 (00:11→21:59)
[2022-11-15] MEDS: SODIUM CHLORIDE 0.9% 1,000 ML IV SCH ×3 (01:00→15:58)
[2022-11-15] MEDS: LIOTHYRONINE SODIUM 5 MCG TAB PO SCH ×2 (05:46→14:53)
[2022-11-15] MEDS: LEVOTHYROXINE 25 MCG TAB PO SCH (05:46)
[2022-11-15 08:25] LABS: Basophils % (A) 0 %; Eosinophils % (A) 0 %; HCT 27.2 % (34.0-46.0); Lymphocytes # (A) 1.7 k/uL (1.0-4.8); Lymphocytes % (A) 14 %; MCH 34.4 pg (25.0-35.0); MCHC 34.7 g/dL (31.0-37.0); MCV 99.2 fL (80.0-100.0); Mean Platelet Volume 7.7; Monocytes # (A) 0.8 k/uL (0-1.0); Monocytes % (A) 7 %; Neutrophils # (A) 9.1 k/uL (1.3-7.7); Neutrophils % (A) 77 %; Platelet Count 377 k/uL (150-450); RBC 2.75 m/uL (3.80-5.40); RDW 12.6 % (11.5-15.5); WBC 11.9 k/uL (3.8-10.6)
[2022-11-15 08:26] LABS: HGB 9.4 gm/dL (11.4-16.0)
[2022-11-15] MEDS ORDERED: TRIAMTERENE-HCTZ 37.5-25MG 1 EACH TAB PO SCH (09:00)
--- NOTE | 2022-11-15 09:46 | P.PN ---
Subjective Progress Note Date: 11/15/22 Principal diagnosis: Postop day #1 bilateral nipple sparing mastectomy, right sentinel node biopsy, bilateral prepectoral implant reconstruction Anitha is a 67 year-old white female postop day #1 bilateral nipple sparing mastectomy with right sentinel node biopsy, bilateral prepectoral implant reconstruction. Postoperatively she has developed some swelling of the right mastectomy site. Her hemoglobin was noted to drop from 14.5 to 9.4. She states that she is feeling well, and tolerating her diet. SALOMÓN drains were emptied and on the right and additional 150 mL of serosanguineous fluid was obtained and on the left 30 mL of serosanguineous fluid. The fluid on the right was more sanguinous and that on the left. Objective - Vital Signs Vital signs: Vital Signs Temp 98.5 F 11/15/22 08:22 Pulse 110 H 11/15/22 09:16 Resp 14 11/15/22 08:22 BP 113/72 11/15/22 09:16 Pulse Ox 96 11/15/22 08:22 FiO2 Intake & Output 11/14/22 11/15/22 11/15/22 18:59 06:59 18:59 Intake Total 2350 Output Total 875 840 180 Balance 1475 -840 -180 Weight 57.7 kg Intake: IV 2350 Output: Drainage 325 190 180 Left 100 140 30 Right 225 50 150 Urine 400 650 Estimated Blood Loss 150 - Constitutional General appearance: Present: cooperative - EENT Eyes: Present: EOMI ENT: Present: hearing grossly normal - Neck Neck: Present: normal ROM - Respiratory Respiratory: bilateral: CTA - Cardiovascular Rhythm: regular Heart sounds: normal: S1, S2 - Integumentary Integumentary Comment(s): The incisions appear to be clean and dry There is fullness in the upper outer quadrant of the right breast possibly consistent with hematoma - Psychiatric Psychiatric: Present: A&O x's 3, appropriate affect, intact judgment & insight - Labs CBC & Chem 7: 11/15/22 07:29 11/14/22 07:44 Labs: Abnormal Lab Results - Last 24 Hours (Table) 11/15/22 Range/Units 07:29 WBC 11.9 H (3.8-10.6) k/uL RBC 2.75 L (3.80-5.40) m/uL Hgb 9.4 L D (11.4-16.0) gm/dL Hct 27.2 L (34.0-46.0) % Neutrophils # 9.1 H (1.3-7.7) k/uL Assessment and Plan Assessment: Impression: Postop day #1 bilateral nipple sparing mastectomy, sentinel node biopsy, prepectoral implant reconstruction Hemoglobin dropped from 14.5-9.4 Possible hematoma right breast Hemodynamically stable, blood pressure 113/72, heart rate 110, patient states that she has tachycardia normally Plan: Close surveillance repeat CBC The patient's drains were stripped and the area of questionable hematoma resolved on the right side after stripping of the drains Patient's discharge will be held at this time
[2022-11-15 10:00] LABS: HCT 24.4 % (34.0-46.0); HGB 8.5 gm/dL (11.4-16.0); MCH 35.3 pg (25.0-35.0); MCHC 34.9 g/dL (31.0-37.0); MCV 101.2 fL (80.0-100.0); Mean Platelet Volume 6.8; Platelet Count 334 k/uL (150-450); RBC 2.41 m/uL (3.80-5.40); RDW 12.2 % (11.5-15.5)
[2022-11-15] MEDS: ONDANSETRON ODT 4 MG TAB PO PRN ×2 (12:44→21:59)
--- NOTE | 2022-11-15 12:45 | P.PN ---
Subjective Progress Note Date: 11/15/22 Patient is a 67-year-old female with PMH of Mnire's disease, hypothyroidism, chronic sinusitis, history of breast cancer that presents to [facility] for elective surgery. She underwent bilateral nipple sparing mastectomy, right sentinel node biopsy, bilateral prepectoral implant recons truction for history of right breast ductal carcinoma in situ. [facility] was consulted for medical management of this patient. Patient had a syncopal episode while walking to the bathroom. Thankfully, her was near her and was able to lower her down and call for help. Her hemoglobin this morning was noted to be 8.5 with concerns of right chest hematoma. 1 unit PRBC was ordered and patient was transferred to medical stepdown. Patient was seen and examined with nursing and at bedside. She reports feeling nauseous but denies any dizziness or excessive pain. Her most recent blood pressure is 129/65 with heart rate in the low 100s. General: non toxic, mild distress, appears at stated age Derm: warm, dry, pale Head: atraumatic, normocephalic, symmetric Eyes: EOMI, no lid lag, anicteric sclera Mouth: no lip lesion, mucus membranes moist Cardiovascular: Tachycardic, no murmur, chest binder in place with bilateral SALOMÓN drain with serosanguineous fluid. Lungs: CTA bilateral, no rhonchi, no rales , no accessory muscle use Ext: no gross muscle atrophy, no edema, no contractures Neuro: no focal neuro deficits Psych: Alert, oriented, appropriate affect Syncopal episode Acute blood loss anemia Mnire's disease Hypothyroidism Dyslipidemia Chronic sinusitis Based on my assessment of this patient, this patient meets a high complexity level of care. I have reviewed the following customer service sales consultant notes: Surgery note 11/14, repeat CBC, questionable hematoma resolved on the right side after stripping of the drains. I have reviewed the results of the following tests: CBC shows hemoglobin of 8.5 and MCV of 101.2. I have ordered the following tests: CBC ordered for tomorrow morning. I have discussed the care of this patient with the following independent historian: None. I have independently interpreted the following test below: None. I have discussed the management of this patient with the following physician: None. This patient has a high risk of morbidity due to the following reasons: Patient has a chronic diagnosis of Mnire's disease, hypothyroidism, chronic sinusitis, dyslipidemia and history of breast cancer. This morning she had a syncopal episode which is likely related to acute blood loss anemia. Her hemoglobin is down trended from 14.5-8.5. Plans to transfuse 2 units PRBC. She'll be transferred to medical stepdown unit. She will be placed on telemetry monitoring. EKG has been ordered. We will hold her triamterene/hydrochlorothiazide until BP improves. Continue Lipitor 20 my grams by mouth at bedtime for history of dyslipidemia. Continue Synthroid 25 g by mouth daily, Liothyronine 2.5 mcg and 5 mcg by mouth daily. Continue melatonin 3 mg by mouth at bedtime. Heparin discontinued due to acute blood loss. SCDs for DVT prophylaxis. Patient would like to be FULL CODE. Objective - Vital Signs Vital signs: Vital Signs Temp 98.2 F 11/15/22 12:30 Pulse 104 H 11/15/22 12:38 Resp 14 11/15/22 12:38 BP 115/62 11/15/22 12:38 Pulse Ox 99 11/15/22 12:38 FiO2 Intake & Output 11/14/22 11/15/22 11/15/22 18:59 06:59 18:59 Intake Total 2350 0 Output Total 875 840 557 Balance 1475 -840 -557 Weight 57.7 kg Intake: IV 2350 Blood Product 0 Unit 0 Output: Drainage 325 190 257 Left 100 140 45 Right 225 50 212 Urine 400 650 300 Estimated Blood Loss 150 - Labs CBC & Chem 7: 11/15/22 09:38 11/14/22 07:44 Labs: Abnormal Lab Results - Last 24 Hours (Table) 11/15/22 11/15/22 11/15/22 Range/Units 07:29 09:38 09:38 WBC 11.9 H (3.8-10.6) k/uL RBC 2.75 L 2.41 L (3.80-5.40) m/uL Hgb 9.4 L D 8.5 L (11.4-16.0) gm/dL Hct 27.2 L 24.4 L (34.0-46.0) % MCV 101.2 H (80.0-100.0) fL MCH 35.3 H (25.0-35.0) pg Neutrophils # 9.1 H (1.3-7.7) k/uL Crossmatch See Detail
[2022-11-15] MEDS: LACTATED RINGERS 1,000 ML IV SCH (13:03)
[2022-11-15] MEDS: HYDROcodone/APAP 5-325MG 1 EACH TAB PO PRN ×3 (13:39→21:58)
[2022-11-15 20:33] LABS: Basophils % (A) 0 %; Eosinophils % (A) 0 %; HCT 32.3 % (34.0-46.0); HGB 11.2 gm/dL (11.4-16.0); Lymphocytes # (A) 2.2 k/uL (1.0-4.8); Lymphocytes % (A) 22 %; MCH 33.3 pg (25.0-35.0); MCHC 34.7 g/dL (31.0-37.0); Mean Platelet Volume 6.8; Monocytes # (A) 0.7 k/uL (0-1.0); Monocytes % (A) 7 %; Neutrophils # (A) 6.9 k/uL (1.3-7.7); Neutrophils % (A) 69 %; Platelet Count 267 k/uL (150-450); RBC 3.37 m/uL (3.80-5.40)
[2022-11-15 20:58] LABS: MCV 95.8 fL (80.0-100.0)
[2022-11-15 21:24] LABS: INR 0.9 (<1.2); Prothrombin Time 9.9 sec (9.0-12.0)
[2022-11-15] MEDS: ATORVASTATIN 20 MG TAB PO SCH (21:59)
[2022-11-16] MEDS: SODIUM CHLORIDE 0.9% 1,000 ML IV SCH ×2 (00:04→14:24)
[2022-11-16] MEDS: LACTATED RINGERS 1,000 ML IV SCH (05:23)
[2022-11-16] MEDS: ONDANSETRON ODT 4 MG TAB PO PRN (05:30)
[2022-11-16] MEDS: HYDROcodone/APAP 5-325MG 1 EACH TAB PO PRN ×2 (05:30→20:35)
[2022-11-16] MEDS: LEVOTHYROXINE 25 MCG TAB PO SCH (05:30)
--- NOTE | 2022-11-16 08:16 | P.PN ---
Subjective Progress Note Date: 11/16/22 Principal diagnosis: Postop day #2 bilateral nipple sparing mastectomy, right sentinel node biopsy, prepectoral implant reconstruction Anitha is a 67-year-old white female who is postop day #2 from bilateral nipple sparing mastectomy, right sentinel node biopsy, prepectoral implant reconstruction. On the first postoperative day her hemoglobin had noted to have dropped to 8.5 and she had a hematoma on the right chest wall. She was given 2 units of packed red blood cells and transferred to a stepdown monitored unit. Repeat hemoglobin after 2 units of packed red blood cells was 11.2. She states this morning she is feeling better. She is hemodynamically stable. Repeat hemoglobin is pending. SALOMÓN drain on the right continues to put out more than on the left and the most recent was 130 mL it is serosanguineous but continues to be somewhat sanguinous. On the left the SALOMÓN drain was 35 mL. Examination reveals the right breast to be swollen relative to the left consistent with a hematoma being present. The patient is hungry this morning. Objective - Vital Signs Vital signs: Vital Signs Temp 98.6 F 11/16/22 04:00 Pulse 110 H 11/16/22 04:00 Resp 16 11/16/22 04:00 BP 132/63 11/16/22 04:00 Pulse Ox 96 11/16/22 04:00 FiO2 Intake & Output 11/15/22 11/16/22 11/16/22 18:59 06:59 18:59 Intake Total 720 Output Total 1337 745 60 Balance -617 -745 -60 Intake: Oral 100 Blood Product 620 Rc As-1 Unit 310 [id number] Rc Irr As1 Unit 310 [id number] Output: Drainage 437 245 60 Left 145 65 10 Right 292 180 50 Urine 900 500 Other: # Voids 1 - Constitutional General appearance: Present: cooperative - EENT Eyes: Present: EOMI ENT: Present: hearing grossly normal - Neck Neck: Present: normal ROM - Respiratory Respiratory: bilateral: CTA - Cardiovascular Rhythm: regular Heart sounds: normal: S1, S2 - Integumentary Integumentary Comment(s): Bilateral breast incisions are clean and dry, axillary incision is clean and dry Right breast is swollen relative to the left breast but it is softer than yesterday consistent with a hematoma - Psychiatric Psychiatric: Present: A&O x's 3, appropriate affect, intact judgment & insight - Labs CBC & Chem 7: 11/15/22 20:04 11/14/22 07:44 Labs: Abnormal Lab Results - Last 24 Hours (Table) 11/15/22 11/15/22 11/15/22 Range/Units 07:29 09:38 09:38 WBC 11.9 H (3.8-10.6) k/uL RBC 2.75 L 2.41 L (3.80-5.40) m/uL Hgb 9.4 L D 8.5 L (11.4-16.0) gm/dL Hct 27.2 L 24.4 L (34.0-46.0) % MCV 101.2 H (80.0-100.0) fL MCH 35.3 H (25.0-35.0) pg Neutrophils # 9.1 H (1.3-7.7) k/uL Crossmatch See Detail 11/15/22 Range/Units 20:04 WBC (3.8-10.6) k/uL RBC 3.37 L (3.80-5.40) m/uL Hgb 11.2 L (11.4-16.0) gm/dL Hct 32.3 L (34.0-46.0) % MCV (80.0-100.0) fL MCH (25.0-35.0) pg Neutrophils # (1.3-7.7) k/uL Crossmatch Assessment and Plan Assessment: Impression: Postop day #2 bilateral nipple sparing mastectomy, sentinel node biopsy, prepectoral implant reconstruction Hemoglobin dropped from 14.5-8.5, given 2 units of packed red blood cells repeat hemoglobin 11.2 hematoma right breast Hemodynamically stable, blood pressure 132/63 heart rate 110, patient states that she has tachycardia normally Plan: Close surveillance repeat CBC Hemoglobin is stable we'll most likely allow the patient to eat, if hemoglobin is dropping again we'll most likely recommend evacuation of hematoma in the operating room Patient's discharge will be held at this time
[2022-11-16] MEDS: HEPARIN SODIUM,PORCINE/PF 5,000 UNIT/0.5 ML SYRINGE SQ SCH ×2 (09:16→20:36)
[2022-11-16] MEDS: LIOTHYRONINE SODIUM 5 MCG TAB PO SCH ×2 (09:16→15:44)
[2022-11-16 09:29] LABS: HCT 26.9 % (34.0-46.0); MCH 33.9 pg (25.0-35.0); MCHC 35.9 g/dL (31.0-37.0); MCV 94.4 fL (80.0-100.0); Mean Platelet Volume 8.1; Platelet Count 232 k/uL (150-450); RBC 2.85 m/uL (3.80-5.40); RDW 14.4 % (11.5-15.5); WBC 9.2 k/uL (3.8-10.6)
[2022-11-16 09:32] LABS: HGB 9.7 gm/dL (11.4-16.0)
[2022-11-16] MEDS: TRIAMTERENE-HCTZ 37.5-25MG 1 EACH CAP PO SCH (10:07)
[2022-11-16] MEDS ORDERED: LACTATED RINGERS 1,000 ML IV ONE ×2 (10:30→12:16)
[2022-11-16] MEDS ORDERED: ONDANSETRON 4 MG/2 ML VIAL ONE (10:40)
[2022-11-16] MEDS ORDERED: fentaNYL (PF) 50 MCG/ML 2 ML AMP ONE (10:40)
[2022-11-16] MEDS ORDERED: LIDOCAINE 2% INJ 20 MG/ML (2 ML VIAL) ONE (10:40)
[2022-11-16] MEDS ORDERED: KETAMINE 10 MG/ML 20 ML VIAL ONE (10:40)
[2022-11-16] MEDS ORDERED: PROPOFOL 10 MG/ML 20 ML VIAL IV ONE (10:40)
[2022-11-16] MEDS ORDERED: DEXAMETHASONE SOD PHOSPHATE 4 MG/ML 1 ML VIAL ONE (10:40)
[2022-11-16] MEDS ORDERED: PHENYLEPHRINE-0.9% NACL SYG 1,000 MCG/10 ML SYRINGE ONE (10:40)
[2022-11-16] MEDS ORDERED: MIDAZOLAM 2 MG/2 ML VIAL ONE (10:40)
--- NOTE | 2022-11-16 12:11 | P.OP ---
Date of Procedure: 11/16/22 Preoperative Diagnosis: Hematoma right chest wall Postoperative Diagnosis: Same Procedure(s) Performed: Evacuation of hematoma Anesthesia: LAZARA Surgeon: Alley Jimenez Estimated Blood Loss (ml): 1,000 Pathology: other Condition: stable Disposition: floor Indications for Procedure: Expanding hematoma right chest wall Operative Findings: Approximately 500 mL hematoma between the implant and the mesh Description of Procedure: The patient was taken to the operating room and following induction of anesthesia the right breast and axilla were prepped and draped in a sterile fashion. The prior incision was opened and upon opening the incision there was noted to be a hematoma which was specifically between the mesh and the implant. This was able to be evacuated and was approximately 500 mL in size. Several of the tabs between the mesh and the chest wall were disrupted, there was a small hematoma posterior to the implant as well. The greatest amount of hematoma seemed to be in the lower outer area of the chest wall near a retaining suture. This was again well irrigated and any little oozing sites were cauterized. Surgicel in powder form was placed. After we assured that this was very dry the flaps were evaluated and no bleeding specific site was identified on the flaps. No evidence of any bleeding was noted at the end of the case. The axillary incision was evaluated and no bleeding was noted. The flaps on the implant were re-attached using 3-0 vicryl suture. The case was discussed intraoperatively with with Dr. Hurley. The deep tissues were closed using 4-0 interrupted monocryl suture. This was followed by a running 5-0 Prolene subcuticular suture. A 5-0 Prolene skin suture running will be placed. The original drain remained in place. The patient tolerated the procedure in stable condition.
[2022-11-16] MEDS ORDERED: HYDROmorphone 0.5 MG/0.5 ML SYRINGE IVP ONE (13:07)
--- NOTE | 2022-11-16 16:51 | P.PN ---
Subjective Progress Note Date: 11/16/22 Patient is a 67-year-old female with PMH of Mnire's disease, hypothyroidism, chronic sinusitis, history of breast cancer that presents to [facility] for elective surgery. She underwent bilateral nipple sparing mastectomy, right sentinel node biopsy, bilateral prepectoral implant recons truction for history of right breast ductal carcinoma in situ. [facility] was consulted for medical management of this patient. Patient had a syncopal episode while walking to the bathroom. Thankfully, her was near her and was able to lower her down and call for help. Her hemoglobin this morning was noted to be 8.5 with concerns of right chest hematoma. 1 unit PRBC was ordered and patient was transferred to medical stepdown. Patient was seen and examined with at bedside. She reports feeling nauseous but denies any dizziness or excessive pain. Her most recent blood pr essure is 124/76 with heart rate in the low 100s. Hg improved to 11.2 from 8.5 after 2 units PRBC yesterday but today Hg dropped to 9.7. She is seen post evacuation of hematoma by Dr. Jimenez. General: non toxic, mild distress, appears at stated age Derm: warm, dry, pale Head: atraumatic, normocephalic, symmetric Eyes: EOMI, no lid lag, anicteric sclera Mouth: no lip lesion, mucus membranes moist Cardiovascular: Tachycardic, no murmur, chest binder in place with bilateral SALOMÓN drain with minimal serosanguineous fluid. Lungs: CTA bilateral, no rhonchi, no rales , no accessory muscle use Ext: no gross muscle atrophy, no edema, no contractures Neuro: no focal neuro deficits Psych: Alert, oriented, appropriate affect Syncopal episode Acute blood loss anemia Mnire's disease Hypothyroidism Dyslipidemia Chronic sinusitis Based on my assessment of this patient, this patient meets a high complexity level of care. I have reviewed the following quality assurance consultant notes: Operative note 11/15, evacuation of hematoma, estimated blood loss of 1000 cc. I have reviewed the results of the following tests: CBC shows hemoglobin of 9.7. I have ordered the following tests: CBC ordered for tomorrow morning. CBC ordered for NOW. I have discussed the care of this patient with the following independent historian: None. I have independently interpreted the following test below: None. I have discussed the management of this patient with the following physician: None. This patient has a high risk of morbidity due to the following reasons: Patient has a chronic diagnosis of Mnire's disease, hypothyroidism, chronic sinusitis, dyslipidemia and history of breast cancer. This morning she had a syncopal episode which is likely related to acute blood loss anemia. Her hemoglobin is down trended from 14.5-8.5. Improved to 11.2 after 2 unit PRBC. POD 0 evacuation of hematoma. She will be placed on telemetry monitoring. Restart triamterene/hydrochlorothiazide. Continue Lipitor 20 my grams by mouth at bedtime for history of dyslipidemia. Continue Synthroid 25 g by mouth daily, Liothyronine 2.5 mcg and 5 mcg by mouth daily. Continue melatonin 3 mg by mouth at bedtime. Heparin discontinued due to acute blood loss. SCDs for DVT prophylaxis. Patient would like to be FULL CODE. Objective - Vital Signs Vital signs: Vital Signs Temp 97.6 F 11/16/22 14:24 Pulse 107 H 11/16/22 14:24 Resp 16 11/16/22 14:24 BP 124/76 11/16/22 14:24 Pulse Ox 93 L 11/16/22 14:24 FiO2 Intake & Output 11/15/22 11/16/22 11/16/22 18:59 06:59 18:59 Intake Total 720 1800 Output Total 1104 621 7524 Balance -617 745 455 Intake: IV 1800 Oral 100 Blood Product 620 Rc As-1 Unit 310 [id number] Rc Irr As1 Unit 310 [id number] Output: Drainage 437 245 145 Left 145 65 45 Right 292 180 100 Urine 662 110 4665 Estimated Blood Loss 200 Other: # Voids 1 1 - Labs CBC & Chem 7: 11/16/22 08:30 11/14/22 07:44 Labs: Abnormal Lab Results - Last 24 Hours (Table) 11/15/22 11/15/22 11/16/22 Range/Units 09:38 20:04 08:30 RBC 3.37 L 2.85 L (3.80-5.40) m/uL Hgb 11.2 L 9.7 L D (11.4-16.0) gm/dL Hct 32.3 L 26.9 L (34.0-46.0) % Crossmatch See Detail
[2022-11-16] MEDS: ATORVASTATIN 20 MG TAB PO SCH (20:36)
[2022-11-16 23:32] LABS: Basophils % (A) 0 %; Eosinophils % (A) 0 %; HCT 24.3 % (34.0-46.0); HGB 8.5 gm/dL (11.4-16.0); Lymphocytes # (A) 1.2 k/uL (1.0-4.8); Lymphocytes % (A) 11 %; MCH 33.7 pg (25.0-35.0); MCV 96.3 fL (80.0-100.0); Mean Platelet Volume 6.8; Monocytes # (A) 0.7 k/uL (0-1.0); Monocytes % (A) 6 %; Neutrophils # (A) 8.7 k/uL (1.3-7.7); Neutrophils % (A) 81 %; Platelet Count 250 k/uL (150-450); RBC 2.52 m/uL (3.80-5.40); RDW 14.2 % (11.5-15.5); WBC 10.7 k/uL (3.8-10.6)
[2022-11-17] MEDS: SODIUM CHLORIDE 0.9% 1,000 ML IV SCH ×2 (00:40→09:08)
[2022-11-17] MEDS: LEVOTHYROXINE 25 MCG TAB PO SCH (06:27)
[2022-11-17] MEDS: HYDROcodone/APAP 5-325MG 1 EACH TAB PO PRN (06:27)
[2022-11-17] MEDS: LIOTHYRONINE SODIUM 5 MCG TAB PO SCH ×2 (06:28→12:21)
[2022-11-17] MEDS: TRIAMTERENE-HCTZ 37.5-25MG 1 EACH CAP PO SCH (09:02)
[2022-11-17] MEDS: HEPARIN SODIUM,PORCINE/PF 5,000 UNIT/0.5 ML SYRINGE SQ SCH (09:02)
[2022-11-17] MEDS: LACTATED RINGERS 1,000 ML IV SCH (10:07)
[2022-11-17 10:27] LABS: Basophils % (A) 0 %; Eosinophils # (A) 0.1 k/uL (0-0.7); Eosinophils % (A) 1 %; HCT 35.2 % (34.0-46.0); Lymphocytes # (A) 2.3 k/uL (1.0-4.8); Lymphocytes % (A) 19 %; MCH 32.3 pg (25.0-35.0); MCHC 34.8 g/dL (31.0-37.0); MCV 92.6 fL (80.0-100.0); Mean Platelet Volume 7.3; Monocytes # (A) 0.7 k/uL (0-1.0); Monocytes % (A) 6 %; Neutrophils % (A) 73 %; Platelet Count 253 k/uL (150-450); RDW 15.5 % (11.5-15.5); WBC 12.4 k/uL (3.8-10.6)
[2022-11-17 10:30] LABS: HGB 12.2 gm/dL (11.4-16.0)
--- NOTE | 2022-11-17 11:47 | P.PN ---
Subjective Progress Note Date: 11/17/22 Principal diagnosis: Postop day #3 bilateral nipple sparing mastectomy, right sentinel node biopsy, prepectoral implant reconstruction Anitha is a 67-year-old white female who is postop day #3 from bilateral nipple sparing mastectomy, right sentinel node biopsy, prepectoral implant reconstruction. On the first postoperative day her hemoglobin had noted to have dropped to 8.5 and she had a hematoma on the right chest wall. She was given 2 units of packed red blood cells and transferred to a stepdown monitored unit. Repeat hemoglobin after 2 units of packed red blood cells was 11.2. She continued to have high output from the right SALOMÓN drain however and her hemoglobin dropped to 9.7. She had a clinical hematoma in the right chest wall. After discussion with Dr. Hurley it was opted that she should go back to surgery for evacuation of the hematoma and stopping of any bleeding points. She was taken to the operating room on and evacuation of the hematoma was performed. No definite bleeding site was noted. The hematoma was between the implant and the mesh. Since the evacuation of hematoma she has minimal output from the right SALOMÓN drain. Last night her hemoglobin was noted to have again dropped and she was given 2 units of packed red blood cells. Her hemoglobin this morning is 12.2. Left SALOMÓN drain is putting out 10 mL and right SALOMÓN drain is 0 mL at this time. She is feeling well at this time. Objective - Vital Signs Vital signs: Vital Signs Temp 98.0 F 11/17/22 07:04 Pulse 103 H 11/17/22 09:50 Resp 16 11/17/22 09:50 BP 140/80 11/17/22 07:04 Pulse Ox 95 11/17/22 07:04 FiO2 Intake & Output 11/16/22 11/17/22 11/17/22 18:59 06:59 18:59 Intake Total 1800 310 310 Output Total 1345 430 600 Balance 455 -120 -290 Intake: IV 1800 Blood Product 310 310 Rc As-1 Unit 0 310 [id number] Rc Irr As1 Unit 310 [id number] Output: Drainage 145 30 Left 45 30 Right 100 0 Urine 1000 400 600 Estimated Blood Loss 200 Other: Voiding Method Bedside Commode # Voids 1 1 0 - Constitutional General appearance: Present: cooperative - EENT Eyes: Present: EOMI ENT: Present: hearing grossly normal - Neck Neck: Present: normal ROM - Respiratory Respiratory: bilateral: CTA - Cardiovascular Rhythm: regular Heart sounds: normal: S1, S2 - Integumentary Integumentary Comment(s): All incisions are clean and dry SALOMÓN right minimal output SALOMÓN left approximately 20 mL of serosanguineous output no evidence of hematoma on either side - Labs CBC & Chem 7: 11/17/22 08:56 11/14/22 07:44 Labs: Abnormal Lab Results - Last 24 Hours (Table) 11/15/22 11/16/22 11/17/22 Range/Units 09:38 23:02 08:56 WBC 10.7 H 12.4 H (3.8-10.6) k/uL RBC 2.52 L (3.80-5.40) m/uL Hgb 8.5 L (11.4-16.0) gm/dL Hct 24.3 L (34.0-46.0) % Neutrophils # 8.7 H 9.0 H (1.3-7.7) k/uL Crossmatch See Detail Assessment and Plan Assessment: Impression: Postop day #3 bilateral nipple sparing mastectomy, sentinel node biopsy, prepectoral implant reconstruction, postop day #1 evacuation of right breast hematoma Hemoglobin this morning 12.2 No clinical evidence of bleeding from the right mastectomy site, she continues to have serosanguineous output from the left SALOMÓN drain which has decreased in amount Plan: Close surveillance repeat CBC Probable discharge home soon
[2022-11-17 12:00] VITALS: BP 149/68; PULSE 109; RESP 18; TEMP 97.5
--- NOTE | 2022-11-17 14:29 | P.DS ---
Providers Date of admission: 11/15/22 12:30 Expected date of discharge: 11/17/22 Attending physician: Alley Jimenez Consults: 11/14/22 11:29 Consult Physician Routine Consulting Provider: Michelle Durham Consult Reason/Comments: medical managment Do you want consulting provider notified?: Yes Primary care physician: Fredy Vidales MD Hospital Course: The patient on 411 underwent a bilateral nipple sparing mastectomy with right sentinel node biopsy, and bilateral prepectoral implant reconstruction. Postoperatively she developed a hematoma on the right chest wall and a drop in her hemoglobin down to 8.5. She was given 2 units of packed red blood cells and hemoglobin increased to 11.2. However the SALOMÓN drain on the right continue to have high output and her hemoglobin again dropped to 9.7. Therefore after discussion with the plastic surgeon she was taken back to surgery for evacuation of the hematoma was performed. No specific site of bleeding was identified. The patient following that was noted to have a hemoglobin of 8.5 and was again given 2 units of packed red blood cells and repeat hemoglobin was noted to be 12.2. Following the procedure she did not have any bloody discharge from the SALOMÓN drain on the right. No evidence of any hematoma was identified. On the left she has been noted to have no hematoma, the SALOMÓN output on that side has slowed d own and is serous in nature. The patient is tolerating a diet without difficulty. She is doing well at this time. Procedures: POD #3 Bilateral nipple sparing mastectomy with bilateral prepectoral implant reconstruction, right sentinel node biopsy, POD #1 evacuation of hematoma right chest wall Patient Condition at Discharge: Good Plan - Discharge Summary Discharge Rx Participant: No New Discharge Prescriptions: New HYDROcodone/APAP 5-325MG [[place] 5] 1 - 2 each PO Q4H PRN #20 tab PRN Reason: Pain HYDROcodone/APAP 5-325MG [[place] 5] 1 - 2 each PO Q4H PRN #20 tab PRN Reason: Pain No Action Atorvastatin [Lipitor] 20 mg PO HS diphenhydrAMINE [Benadryl] 25 mg PO DAILY Liothyronine Sodium [Cytomel] 5 mcg PO DAILY Liothyronine Sodium [Cytomel] 2.5 mcg PO 1200 Levothyroxine Sodium [Synthroid] 25 mcg PO DAILY Triamterene/Hydrochlorothiazid [Triamterene-Hctz 37.5-25 mg Tb] 1 each PO DAILY Psyllium Husk [Metamucil] 0.4 gm PO HS Melatonin 3 mg PO HS PRN PRN Reason: Insomnia L.acidoph,Paracasei, B.lactis [Probiotic] 1 each PO DAILY Cholecalciferol [Vitamin D3 (25 Mcg = 1000 Iu)] 10,000 unit PO DAILY Vitamin C With Collagen 1 tab PO DAILY Magnesium 200 mg PO DAILY flaxseed oiL [Flaxseed Oil] 1,000 mg PO DAILY Cinnamon Bark [Cinnamon] 500 mg PO DAILY Cider Vinegar [Apple Cider Vinegar] 300 mg PO DAILY Turmeric Root Extract [Turmeric] 500 mg PO DAILY Caron 500 mg PO DAILY Phytonadione [Vitamin K] 5 mg PO DAILY Krill Oil 500 mg PO DAILY Cranberry Fruit Extract [Cranberry] 200 mg PO DAILY Biotin 5 mg PO DAILY Ubidecarenone [Co Q-10] 100 mg PO DAILY Aloe Vera 5,000 mg PO DAILY Glycin 1 tab PO DAILY Glutathione 1 tab PO DAILY Naproxen Sod/Diphenhydramine [Aleve Pm Caplet] 1 each PO HS PRN PRN Reason: Insomnia Potassium Chloride meq PO Discharge Medication List Atorvastatin [Lipitor] 20 mg PO HS 01/06/20 [History] L.acidoph,Paracasei, B.lactis [Probiotic] 1 each PO DAILY 01/06/20 [History] Levothyroxine Sodium [Synthroid] 25 mcg PO DAILY 01/06/20 [History] Liothyronine Sodium [Cytomel] 2.5 mcg PO 1200 01/06/20 [History] Liothyronine Sodium [Cytomel] 5 mcg PO DAILY 01/06/20 [History] Melatonin 3 mg PO HS PRN 01/06/20 [History] Psyllium Husk [Metamucil] 0.4 gm PO HS 01/06/20 [History] Triamterene/Hydrochlorothiazid [Triamterene-Hctz 37.5-25 mg Tb] 1 each PO DAILY 01/06/20 [History] diphenhydrAMINE [Benadryl] 25 mg PO DAILY 01/06/20 [History] Aloe Vera 5,000 mg PO DAILY 05/11/20 [History] Biotin 5 mg PO DAILY 05/11/20 [History] Cholecalciferol [Vitamin D3 (25 Mcg = 1000 Iu)] 10,000 unit PO DAILY 05/11/20 [History] Cider Vinegar [Apple Cider Vinegar] 300 mg PO DAILY 05/11/20 [History] Cinnamon Bark [Cinnamon] 500 mg PO DAILY 05/11/20 [History] Cranberry Fruit Extract [Cranberry] 200 mg PO DAILY 05/11/20 [History] Caron 500 mg PO DAILY 05/11/20 [History] Glutathione 1 tab PO DAILY 05/11/20 [History] Glycin 1 tab PO DAILY 05/11/20 [History] Krill Oil 500 mg PO DAILY 05/11/20 [History] Magnesium 200 mg PO DAILY 05/11/20 [History] Phytonadione [Vitamin K] 5 mg PO DAILY 05/11/20 [History] Turmeric Root Extract [Turmeric] 500 mg PO DAILY 05/11/20 [History] Ubidecarenone [Co Q-10] 100 mg PO DAILY 05/11/20 [History] Vitamin C With Collagen 1 tab PO DAILY 05/11/20 [History] flaxseed oiL [Flaxseed Oil] 1,000 mg PO DAILY 05/11/20 [History] Naproxen Sod/Diphenhydramine [Aleve Pm Caplet] 1 each PO HS PRN 09/22/20 [History] HYDROcodone/APAP 5-325MG [[place] 5] 1 - 2 each PO Q4H PRN #20 tab 11/14/22 [Rx] HYDROcodone/APAP 5-325MG [[place] 5] 1 - 2 each PO Q4H PRN #20 tab 11/14/22 [Rx] Potassium Chloride meq PO 11/14/22 [History] Follow up Appointment(s)/Referral(s): [facility], [NON-STAFF] - Jorge Luis-Alley Sood MD [STAFF PHYSICIAN] - 1 Week Arnulfo Montoya MD [STAFF PHYSICIAN] - 1 Week Activity/Diet/Wound Care/Special Instructions: Do not drive until seen by Dr. Kang Do not drive if taking narcotic pain medicine Teaching patient and drain care, drain and record SALOMÓN output twice a day and as needed Wear surgical bra at all times Patient to call if any concerns Discharge Disposition: HOME SELF-CARE
--- NOTE | 2022-11-17 15:31 | P.PN ---
Subjective Progress Note Date: 11/17/22 Patient is a 67-year-old female with PMH of Mnire's disease, hypothyroidism, chronic sinusitis, history of breast cancer that presents to [facility] for elective surgery. She underwent bilateral nipple sparing mastectomy, right sentinel node biopsy, bilateral prepectoral implant reconstruction for history of right breast ductal carcinoma in situ. [facility] was consulted for medical management of this patient. Patient had a syncopal episode while walking to the bathroom. Thankfully, her was near her and was able to lower her down and call for help. Her hemoglobin this morning was noted to be 8.5 with concerns of right chest hematoma. 2 unit PRBC was ordered and patient was transferred to medical stepdown. Patient was seen and examined at bedside. She reports improvement in nauseous, denies any dizziness or excessive pain. Her most recent blood pressure is 149/68 with heart rate in the low 100s. Hg downtrended to 8.5 after hematoma evacuation on 11/16. Additional 2 units of PRBC was ordered. Hemoglobin this morning improved to 12.2. General: non toxic, no distress, appears at stated age Derm: warm, dry, pale Head: atraumatic, normocephalic, symmetric Eyes: EOMI, no lid lag, anicteric sclera Mouth: no lip lesion, mucus membranes moist Cardiovascular: Good distal perfusion in all 4 extremities Lungs: no accessory muscle use Ext: no gross muscle atrophy, no edema, no contractures Neuro: no focal neuro deficits Psych: Alert, oriented, appropriate affect Syncopal episode Acute blood loss anemia Mnire's disease Hypothyroidism Dyslipidemia Chronic sinusitis Based on my assessment of this patient, this patient meets a moderate complexity level of care. I have reviewed the following ux consultant notes: Surgery note 11/17, no clinical evidence of bleeding, minimal output from SALOMÓN drain. I have reviewed the results of the following tests: CBC shows WBC of 12.4 and hemoglobin of 12.2. I have ordered the following tests: None. I have discussed the care of this patient with the following independent historian: None. I have independently interpreted the following test below: None. I have discussed the management of this patient with the following physician: None. This patient has a moderate risk of morbidity due to the following reasons: Patient has a chronic diagnosis of Mnire's disease, hypothyroidism, chronic sinusitis, dyslipidemia and history of breast cancer. This morning she had a syncopal episode which is likely related to acute blood loss anemia. Her hemoglobin is down trended from 14.5-8.5. Improved to 11.2 after 2 unit PRBC. POD 1 evacuation of hematoma. Repeat hemoglobin was 8.5 post evacuation, another 2 units of PRBC was ordered. Hemoglobin this morning is 12.2 with no signs of active bleeding. Continue triamterene/hydrochlorothiazide 37.5-25 mg by mouth daily. Continue Lipitor 20 my grams by mouth at bedtime for history of dyslipidemia. Continue Synthroid 25 g by mouth daily, Liothyronine 2.5 mcg and 5 mcg by mouth daily. Continue melatonin 3 mg by mouth at bedtime. Objective - Vital Signs Vital signs: Vital Signs Temp 97.5 F L 11/17/22 11:50 Pulse 109 H 11/17/22 11:50 Resp 18 11/17/22 11:50 BP 149/68 11/17/22 11:50 Pulse Ox 98 11/17/22 11:50 FiO2 Intake & Output 11/16/22 11/17/22 11/17/22 18:59 06:59 18:59 Intake Total 1800 310 310 Output Total 1345 430 800 Balance 455 -120 -490 Intake: IV 1800 Blood Product 310 310 Rc As-1 Unit 0 310 [id number] Rc Irr As1 Unit 310 [id number] Output: Drainage 145 30 Left 45 30 Right 100 0 Urine 1000 400 800 Estimated Blood Loss 200 Other: Voiding Method Bedside Commode # Voids 1 1 0 - Labs CBC & Chem 7: 11/17/22 08:56 11/14/22 07:44 Labs: Abnormal Lab Results - Last 24 Hours (Table) 11/15/22 11/16/22 11/17/22 Range/Units 09:38 23:02 08:56 WBC 10.7 H 12.4 H (3.8-10.6) k/uL RBC 2.52 L (3.80-5.40) m/uL Hgb 8.5 L (11.4-16.0) gm/dL Hct 24.3 L (34.0-46.0) % Neutrophils # 8.7 H 9.0 H (1.3-7.7) k/uL Crossmatch See Detail
== END 2022-11-17 15:51 | disposition home or self-care (01) | DRG 580 ==
LOC: OR 07:17 → 4FBP 12:38 → UNDOADMIN 11-15 12:30 → OR 11-15 12:30 → 3SCARD 11-15 12:30
PROVIDERS: ADMIT Surgery; ATTEND Surgery
PROC: 0HHV0NZ Insertion of Tissue Expander into Bilateral Breast, Open Approach (ICD-10-PCS; 2022-11-14)
PROC: 0HTV0ZZ Resection of Bilateral Breast, Open Approach (ICD-10-PCS; principal; 2022-11-14 08:30)
PROC: 07B50ZX Excision of Right Axillary Lymphatic, Open Approach, Diagnostic (ICD-10-PCS; principal; 2022-11-14 08:30)
PROC: 30233N1 Transfusion of Nonautologous Red Blood Cells into Peripheral Vein, Percutaneous Approach (ICD-10-PCS; 2022-11-15)
PROC: 0WCC0ZZ Extirpation of Matter from Mediastinum, Open Approach (ICD-10-PCS; 2022-11-16)
DX: D05.11 Intraductal carcinoma in situ of right breast (principal); D62 Acute posthemorrhagic anemia; L76.32 Postprocedural hematoma of skin and subcutaneous tissue following other procedure; E03.9 Hypothyroidism, unspecified; Y83.8 Other surgical procedures as the cause of abnormal reaction of the patient, or of later complication, without mention of misadventure at the time of the procedure; J32.9 Chronic sinusitis, unspecified; E78.5 Hyperlipidemia, unspecified; R00.0 Tachycardia, unspecified; R55 Syncope and collapse; H81.09 Meniere's disease, unspecified ear; Z96.659 Presence of unspecified artificial knee joint; Z86.718 Personal history of other venous thrombosis and embolism; Z79.890 Hormone replacement therapy; Z79.899 Other long term (current) drug therapy
CPT/HCPCS: 38792; 80053; 85025; 85027; 85610; 86850; 86900; 86901; 86920; 88305; 88307; 88309; 88341; 88342

== ENCOUNTER → 2022-11-23 | Outpatient (CLI) | payer MEDICARE, OTHER ==
--- NOTE | 2022-11-23 15:43 | P.PN ---
Progress Note - Text Progress Note Date: 11/23/22 Anitha is a 67 year old white female status post a bilateral nipple sparring mastectomy and SNB on 11-14-22. Her pathology revelaed DCIS completely removed, and node (-). 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 Postoperatively she developed a hematoma requiring evacuation in the OR of the right mastectomy site. Examination: Lungs: Clear Heart: Regular rate and rhythm Incision: Bilateral breasts clean and dry no evidence of infection at incision s ite Axillary incision right clean and dry There is some erythema at the inferior aspect of the right breast SALOMÓN drains serous bilateral both sides are more than 40 mL at this time and not ready for removal yet Impression: Patient doing very well at this time Mild erythema inferior aspect of the right breast Plan: Keflex 500 mg one by mouth 4 times a day Follow-up with Dr. Hurley next week Follow up here in 10 days In the medical oncology CC: Dr. Vidales
[2022-11-23 15:54] VITALS: BP 128/66; PULSE 104; RESP 17; TEMP 98.1
== END ==
LOC: WWCWWP 15:12
PROVIDERS: ATTEND Surgery
DX: Z85.3 Personal history of malignant neoplasm of breast (principal); N64.89 Other specified disorders of breast; Z91.012 Allergy to eggs; Z91.018 Allergy to other foods; Z91.02 Food additives allergy status

== ENCOUNTER 2023-02-26 11:43 | Day surgery (SDC) | payer MEDICARE, OTHER ==
[2023-02-21 13:21] VITALS: BMI 21.9
[~2023-02-26 11:43] MED LIST changes: +DEXAMETHASONE SOD PHOSPHATE 4 MG/ML 1 ML VIAL IV ONE; -HEPARIN SODIUM,PORCINE/PF 5,000 UNIT/0.5 ML SYRINGE SQ PRN; +HYDROmorphone 0.5 MG/0.5 ML SYRINGE IVP PRN; +LACTATED RINGERS 1,000 ML IV SCH; +ONDANSETRON 4 MG/2 ML VIAL IVP ONE
[2023-02-26 13:01] LABS: Basophils % (A) 0 %; Eosinophils # (A) 0.4 k/uL (0-0.7); Eosinophils % (A) 6 %; HCT 43.2 % (34.0-46.0); HGB 15.3 gm/dL (11.4-16.0); Lymphocytes # (A) 1.8 k/uL (1.0-4.8); Lymphocytes % (A) 28 %; MCH 34.8 pg (25.0-35.0); MCHC 35.4 g/dL (31.0-37.0); MCV 98.2 fL (80.0-100.0); Monocytes # (A) 0.4 k/uL (0-1.0); Monocytes % (A) 7 %; Neutrophils # (A) 3.7 k/uL (1.3-7.7); Neutrophils % (A) 56 %; Platelet Count 305 k/uL (150-450); RDW 12.5 % (11.5-15.5); WBC 6.5 k/uL (3.8-10.6)
[2023-02-26] MEDS ORDERED: LIDOCAINE 2% INJ 20 MG/ML (2 ML VIAL) ONE (13:20)
[2023-02-26] MEDS ORDERED: diphenhydrAMINE 50 MG/ML 1 ML VIAL ONE (13:20)
[2023-02-26] MEDS ORDERED: MIDAZOLAM 2 MG/2 ML VIAL ONE (13:20)
[2023-02-26] MEDS ORDERED: ROCURONIUM 10 MG/ML (5 ML VIAL) IV ONE (13:20)
[2023-02-26] MEDS ORDERED: PHENYLEPHRINE-0.9% NACL SYG 1,000 MCG/10 ML SYRINGE ONE (13:20)
[2023-02-26] MEDS ORDERED: NEOSTIGMINE 1 MG/ML 10 ML VIAL ONE (13:20)
[2023-02-26] MEDS ORDERED: PROPOFOL 10 MG/ML 20 ML VIAL IV ONE (13:20)
[2023-02-26] MEDS ORDERED: SUCCINYLCHOLINE CHLORIDE 200 MG/10 ML VIAL IV ONE (13:20)
[2023-02-26] MEDS ORDERED: fentaNYL (PF) 50 MCG/ML 2 ML AMP ONE (13:20)
[2023-02-26] MEDS ORDERED: GLYCOPYRROLATE 0.2 MG/ML 2 ML VIAL ONE (13:20)
[2023-02-26 14:12] LABS: ALT 27 U/L (4-34); AST 28 U/L (14-36); African American GFR (CKD) >90 (>60 ml/min/1.73 sqM); Alkaline Phosphatase 85 U/L (38-126); Anion Gap 8 mmol/L; Blood Urea Nitrogen 12 mg/dL (7-17); Calcium 9.5 mg/dL (8.4-10.2); Carbon Dioxide 27 mmol/L (22-30); Chloride 107 mmol/L (98-107); Glucose 109 mg/dL (74-99); Non-African American GFR(CKD) >90 (>60 ml/min/1.73 sqM); Potassium 3.5 mmol/L (3.5-5.1); Sodium 142 mmol/L (137-145); Total Bilirubin 0.8 mg/dL (0.2-1.3); Total Protein 6.7 g/dL (6.3-8.2)
[2023-02-26 15:29] VITALS: RESP 16; TEMP 97.2
[2023-02-26] MEDS ORDERED: HYDROcodone/APAP 5-325MG 1 EACH TAB ONE (16:18)
[2023-02-26] MEDS ORDERED: HYDROcodone/APAP 5-325MG 1 EACH TAB PO ONE (16:19)
[2023-02-26 17:05] VITALS: BP 124/72; PULSE 84
--- NOTE | 2023-02-26 21:50 | OP ---
OPERATIVE REPORT DATE OF SERVICE : 02/26/2023 PREOPERATIVE DIAGNOSES: 1. Acquired loss, right and left breasts. 2. Personal history of breast cancer. 3. Personal history of bilateral mastectomy. 4. Acquired deformity of right and left reconstructed breasts. 5. Acquired loss, right and left breast inframammary folds. POSTOPERATIVE DIAGNOSES: 1. Acquired loss, right and left breasts. 2. Personal history of breast cancer. 3. Personal history of bilateral mastectomy. 4. Acquired deformity of right and left reconstructed breasts. 5. Acquired loss, right and left breast inframammary folds. OPERATIVE PROCEDURES: 1. Replace right breast tissue claims manager with silicone breast implant for right breast reconstruction. 2. Revision right reconstructed breast. 3. Replace left breast tissue claims manager with silicone breast implant for left breast reconstruction. 4. Revision left reconstructed breast. 5. Reconstruction, right and left breast inframammary folds via local advancement flaps, 54 cm2. OPERATIVE INDICATIONS: The patient is a 67-year-old female, who has undergone bilateral mastectomy procedures with immediate reconstruction via prepectoral tissue claims manager technique. She has completed subsequent outpatient expansion. She is returning to surgery today for second stage of breast reconstruction with removal of her expanders, placement of breast implants, revision to optimize shape and form as well as reconstruction of inframammary folds that have been effaced due to the expansion and the mastectomy processes. The patient is aware of potential risks and complications including, but not limited to hematoma, seroma, wound healing problems, infection, and implant-related complications among others. She has requested I perform the surgery. OPERATIVE PROCEDURE SUMMARY: The patient was seen in the preoperative area. Markings were made. Procedure was reviewed. All questions were answered. She was transported to the operating room, where she was placed in supine position. Following induction of general endotracheal anesthesia, the patient was prepped and draped in usual fashion. The surgery was initiated on the right side identifying the prior mastectomy scar site, using the skin marker to place an incision diagram here, and then the incision was made following the markings placed with a 10-blade scalpel dividing the skin in full-thickness fashion followed by cauterization to divide the subcutaneous tissue and then elevate skin and subcutaneous tissue flaps off the underlying graft layer to create some space to offset the incision through the graft layer, which was performed with cautery as well. The claims manager was removed intact. The expansion cavity appeared normal with no granulation tissue and no exudates. The cavity was irrigated. A complete capsulotomy incision was made, where the capsule joined the chest wall, and multiple cruciate incisions through the capsular structure to release this tightness were performed. Hemostasis was maintained with cautery. The site was packed open with multiple laparotomy sponges. Attention was turned towards the left side, where the incision was made in similar fashion to the right following the diagram marked. Once the skin was divided in full- thickness fashion with a 10-blade scalpel, cautery was used to divide subcutaneous tissue and then elevate skin and subcutaneous tissue flaps off the underlying graft layer to create some space to offset the incision through the graft layer, which was completed with cautery. The claims manager was removed intact. The expansion cavity appeared normal. No granulation tissue. No exudates. However, the contours and the scarring on the left side were slightly greater. A complete capsulotomy incision was made, where the capsule joined the chest wall and then multiple cruciate incisions through the capsular structure. Additional dissection was required medially and inferiorly to create slightly greater space to create better symmetry for the reconstruction. This was completed with cautery. Once completed, irrigation was performed. Hemostasis was maintained with cautery. The inframammary folds to the right and left side were now reconstructed. Each fold measured 18 x 1.5 cm2. Through the inferior capsulotomy incision on the right and left side, dissection was performed elevating skin and subcutaneous tissue of the dimension described, and then this was advanced in cephalad fashion and secured to chest wall rib periosteal tissue using 2-0 Vicryl sutures in several discrete locations creating the inframammary folds to the right and left side. Irrigation was performed. Temporary breast implant sizers were opened on the field. Ultimately, a 560 mL Sizer appeared best. The patient was evaluated in seated up position, and incisions were temporarily closed. She was returned to supine position. Temporary marcelle were removed. Implant sizers were removed. Both cavities were re-irrigated. Hemostasis was optimized with cautery. Excellent hemostasis was obtained. Gloves were now changed, and breast implants were opened on the field. The implants were from the [facility] soft touch breast implant line, reference #[id number]. The right-sided serial number was [id number], and the left-sided serial number was [id number]. The implants were opened onto the field separately and not touched. They were irrigated with saline and then placed carefully into a Asher funnel and passed into the reconstructive cavity, first on the left, then right side. The orientation of the implants was assured under direct vision. The graft layer was then closed over each implant using interrupted 3-0 Vicryl suture followed by closure of both incisions. I approximated deep dermis using inverted interrupted 4-0 Monocryl. I then completed superficial dermal and epidermal closure with running simple 5-0 Prolene. Surgical field was cleansed with saline and dried, and postoperative bandages were placed using 1-inch sterile paper tape to cover suture repairs followed by Kerlix squares secured with 3 Medipore tape in position, size 3 white mammary support with additional ABD padding to the lateral aspect. The patient was then awakened from her anesthetic, extubated in the operating room, and transferred to the recovery room in good condition with stable vital signs. Estimated blood loss was 25 mL. There were no complications. MMODL / IJN: [id number] /
== END 2023-02-26 17:08 ==
LOC: OR 11:43
PROVIDERS: ATTEND Plastic Surgery
DX: N64.89 Other specified disorders of breast (principal); E78.5 Hyperlipidemia, unspecified; E03.9 Hypothyroidism, unspecified; F41.9 Anxiety disorder, unspecified; F32.A Depression, unspecified; Z85.3 Personal history of malignant neoplasm of breast; Z79.890 Hormone replacement therapy
CPT/HCPCS: 19380; 14301; 11970; 80053; 85025; C1789; J2250; J0330; J1200; J1100; J2710; J0690; J2405; J3010; J2704; J2001; J2371

== ENCOUNTER → 2023-03-10 | Outpatient (CLI) | payer MEDICARE, OTHER ==
--- NOTE | 2023-03-12 07:25 | MR ---
EXAMINATION TYPE: MR MRCP DATE OF EXAM: 03/10/2023 8:14 AM CLINICAL INDICATION:Female, 67 years old with history of Z80.8 C50.121; Abdominal, history of breast cancer, family history of cancer COMPARISON: CT abdomen pelvis 02/22/2022 TECHNIQUE: Multi planar, T2-weighted imaging with and without fat saturation and chemical shift imag ing was performed of the abdomen. Then, heavily T2 weighted imaging (half-Fourier acquisition single- shot turbo spin-echo) was utilized in order to study the biliary system. Maximum intensity projectio n images were reconstructed from the original data of the biliary tree. 3D images were created on a [employer] work station. No Gadolinium given. FINDINGS: Lower Thorax: No evidence for acute process. Bilateral breast implants which appear intact. The heart is mildly enlarged for size. MRCP: * The intrahepatic ducts have a normal appearance. * The common bile duct at the level of the pancreatic head measures 2 mm in size. * The common hepatic duct measures 3 mm in size. * The pancreatic duct is normal. * The gallbladder appears unremarkable. Abdomen: Liver: Diffuse signal dropout on chemical shift of phase imaging. Scattered high T2 signal probable h epatic cysts. Pancreas: Unremarkable. Spleen: Unremarkable. Adrenal glands: Unremarkable. Kidneys: Unremarkable. Stomach and Bowel: Unremarkable as visualized. Peritoneum: No evidence of pneumoperitoneum or free fluid. Vasculature: Unremarkable. No aortic aneurysm. Musculoskeletal: The osseous structures appear intact. Lymph Nodes: No gross evidence for lymphadenopathy. Abdominal wall: Fat-containing umbilical hernia. IMPRESSION: 1. No evidence for acute abdominal process. 2. No evidence to suggest ductal stricture, choledocholithiasis, or biliary ductal dilatation. 3. Hepatic steatosis.
== END | disposition home or self-care (01) ==
LOC: RADMRIMAIN 07:24
PROVIDERS: ATTEND Internal Medicine Hematology & Oncology
DX: C50.111 Malignant neoplasm of central portion of right female breast (principal); K76.0 Fatty (change of) liver, not elsewhere classified; Z80.8 Family history of malignant neoplasm of other organs or systems; Z85.3 Personal history of malignant neoplasm of breast
CPT/HCPCS: 74181

== ENCOUNTER 2023-03-21 07:28 | Day surgery (SDC) | payer MEDICARE, OTHER ==
[2023-03-16 10:35] VITALS: BMI 21.9
[~2023-03-21 07:28] MED LIST changes: -DEXAMETHASONE SOD PHOSPHATE 4 MG/ML 1 ML VIAL IV ONE; -HYDROmorphone 0.5 MG/0.5 ML SYRINGE IVP PRN; +LIDOCAINE 1% (10MG/ML) FOR IV START INTRADERMA PRN; -ONDANSETRON 4 MG/2 ML VIAL IVP ONE; -Pre Op ABX Message 1 EACH MISC MISCELLANE ONE
[2023-03-21 08:01] VITALS: TEMP 97.4
[2023-03-21] MEDS ORDERED: ONDANSETRON 4 MG/2 ML VIAL ONE (08:02)
[2023-03-21] MEDS ORDERED: LIDOCAINE 2% INJ 20 MG/ML (2 ML VIAL) ONE (08:30)
[2023-03-21] MEDS ORDERED: PROPOFOL 10 MG/ML 20 ML VIAL IV ONE (08:30)
--- NOTE | 2023-03-21 09:05 | P.PCN ---
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 Procedure performed: Esophagogastroduodenoscopy with biopsy Colonoscopy with biopsy and snare polypectomy Preoperative diagnosis: Personal history of Venegas syndrome Anesthesia: MAC Procedure: After informed consent was obtained from the patient was brought into the endoscopy unit and IV sedation was administered by anesthesia under continuous monitoring. Initially upper endoscopy was done. The Olympus GF 160 video endoscope was inserted inserted into the mouth and esophagus intubated without any difficulty and was gradually advanced into the stomach and duodenum and carefully examined. The bulb and second part of the duodenum appeared normal. The scope was then withdrawn into the stomach adequately insufflated with air and upon careful examination the antrum had mild gastritis and biopsies were done from this area. Mucosa of the body, cardia and fundus appeared normal. The scope was then withdrawn into the esophagus. Small hiatal hernia noted. The GE junction was located at 40 cm to the incisors. It appeared regular with no erythema erosions or ulcerations. Rest of the esophagus appeared normal. Patient tolerated the procedure well. At this time the patient continued to remain sedation. Initial digital rectal examination was normal. Olympus CF 160 video colonoscope was then inserted into the rectum and gradually advanced to the cecum without any difficulty. Careful examination was performed as the scope was gradually being withdrawn. The prep was excellent. The cecum, appeared normal. Ascending colon there was a 2 mm polyp that was removed by cold biopsy. Rest of the ascending colon, appeared normal. In the transverse colon there was a 6 mm flat polyp removed by snare polypectomy. Scattered left sided diverticulosis seen. Rest of the transverse colon, descending colon, sigmoid colon and rectum appeared normal. Retroflexion was performed in the rectum and no lesions were noted. Patient tolerated the procedure well. Impression: 1. Upper endoscopy revealed antral gastritis and small hiatal hernia 2. Colonoscopy revealed 2 mm ascending colon polyp status post cold biopsy and 6 mm transverse colon polyp status post snare polypectomy Recommendations: Findings of this examination were discussed with the patient as well a her f amily. She was advised to follow with the biopsy results and have a repeat colonoscopy in 2 years. s
[2023-03-21 09:15] VITALS: RESP 14
[2023-03-21 09:38] VITALS: BP 123/74; PULSE 77
== END 2023-03-21 09:53 ==
LOC: ORWHC2ENDO 07:28
PROVIDERS: ATTEND Internal Medicine Gastroenterology
DX: K29.50 Unspecified chronic gastritis without bleeding (principal); K44.9 Diaphragmatic hernia without obstruction or gangrene; K57.30 Diverticulosis of large intestine without perforation or abscess without bleeding; D12.2 Benign neoplasm of ascending colon; D12.3 Benign neoplasm of transverse colon; I10 Essential (primary) hypertension; E78.5 Hyperlipidemia, unspecified; E07.9 Disorder of thyroid, unspecified; M19.90 Unspecified osteoarthritis, unspecified site; Z15.09 Genetic susceptibility to other malignant neoplasm; Z79.899 Other long term (current) drug therapy; Z79.890 Hormone replacement therapy
CPT/HCPCS: 88305; 45380; 45385; 43239; J2405; J2704; J2001

== ENCOUNTER → 2023-08-22 | Outpatient (CLI) | payer MEDICARE, OTHER ==
[2023-08-22 15:33] LABS: Amylase 102 U/L (23-121); HCT 42.6 % (37.2-46.3); HGB 14.7 g/dL (12.0-15.0); Lipase 36 U/L (14-63); MCH 33.8 pg (27.0-32.0); MCHC 34.5 g/dL (32.0-37.0); MCV 97.9 FL (80.0-97.0); Mean Platelet Volume 9.2 FL (9.5-12.2); NRBC Per 100 WBC 0 X 10*3/uL (0.00-0.01); Platelet Count 328 X 10*3/uL (140-440); RBC 4.35 X 10*6/uL (4.10-5.20); RDW 12.3 % (11.5-14.5); WBC 6.32 X 10*3/uL (4.50-10.00)
[2023-08-22 15:34] LABS: ALT 26 U/L (8-44); AST 26 U/L (13-35); Albumin/Globulin Ratio 2.17 Ratio (1.60-3.17); Alkaline Phosphatase 85 U/L (41-126); BUN/Creat Ratio 25.17 Ratio (12.00-20.00); Blood Urea Nitrogen 15.1 mg/dL (9.0-27.0); Carbon Dioxide 27.9 mmol/L (21.6-31.8); Chloride 104 mmol/L (96-109); Chol/HDL Ratio 2.82 Ratio; Globulin 2.3 g/dL (1.6-3.3); Glucose 96 mg/dL (70-110); LDL Cholesterol,Calculated 88.1 mg/dL (0.0-131.0); Potassium 3.8 mmol/L (3.5-5.5); Sodium 144 mmol/L (135-145); Total Bilirubin 0.9 mg/dL (0.3-1.2); Total Protein 7.3 g/dL (6.2-8.2)
== END | disposition home or self-care (01) ==
LOC: LABWHC1 09:14
PROVIDERS: ATTEND Family Medicine
DX: E78.5 Hyperlipidemia, unspecified (principal); E03.9 Hypothyroidism, unspecified; Z80.8 Family history of malignant neoplasm of other organs or systems; Z15.09 Genetic susceptibility to other malignant neoplasm
CPT/HCPCS: 36415; 80053; 80061; 82150; 83690; 84439; 84443; 84480; 85027

== ENCOUNTER → 2024-02-05 | Outpatient (CLI) | payer MEDICARE, OTHER ==
--- NOTE | 2024-02-05 16:11 | MR ---
EXAMINATION TYPE: MR MRCP DATE OF EXAM: 02/05/2024 9:41 AM CLINICAL INDICATION:Female, 68 years old with history of C50.111 breast ca; PHH, Hx of breast ca, crandall creatic screening COMPARISON: 03/10/2023 TECHNIQUE: Multi planar, T2-weighted imaging with and without fat saturation and chemical shift imag ing was performed of the abdomen. Then, heavily T2 weighted imaging (half-Fourier acquisition single- shot turbo spin-echo) was utilized in order to study the biliary system. Maximum intensity projectio n images were reconstructed from the original data of the biliary tree. 3D images were created on [employer] work station. No Gadolinium given. FINDINGS: MRCP: * The intrahepatic ducts have a normal appearance. * The common bile duct at the level of the pancreatic head measures 2 mm in size. * The common hepatic duct measures 3 mm in size. * The pancreatic duct is normal. * The gallbladder appears unremarkable. Abdomen: Liver: Diffuse signal dropout on chemical shift of phase imaging. Scattered high T2 signal probable h epatic cysts. Pancreas: Unremarkable. Spleen: Unremarkable. Adrenal glands: Unremarkable. Kidneys: Unremarkable. Stomach and Bowel: Unremarkable as visualized. Peritoneum: No evidence of pneumoperitoneum or free fluid. Vasculature: Unremarkable. No aortic aneurysm. Musculoskeletal: The osseous structures appear intact. Lymph Nodes: No gross evidence for lymphadenopathy. Abdominal wall: Fat-containing umbilical hernia. IMPRESSION: Stable exam from prior. 1. No evidence for acute abdominal process. No pancreatic mass visualized. 2. No evidence to suggest ductal stricture, choledocholithiasis, or biliary ductal dilatation. 3. Hepatic steatosis.
== END | disposition home or self-care (01) ==
LOC: RADMRIMAIN 09:05
PROVIDERS: ATTEND Internal Medicine Hematology & Oncology
DX: C50.511 Malignant neoplasm of lower-outer quadrant of right female breast (principal); K76.0 Fatty (change of) liver, not elsewhere classified
CPT/HCPCS: 74181

== ENCOUNTER → 2024-02-29 | Outpatient (CLI) | payer MEDICARE, OTHER ==
[2024-02-29 11:04] VITALS: BP 143/82; PULSE 78; RESP 17; TEMP 97.8
--- NOTE | 2024-02-29 11:15 | P.PN ---
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 Vidales regarding a radiographic abnormality of the right breast. She had a bilateral mammogram on [id number] which showed heterogeneously dense breast. Additionally a microchip was noted in the left breast from a prior biopsy. Increasing group regional microcalcification subareolar right breast were identified. Additional views of the right breast were performed on 1422. This revealed microcalcifications in the anterior lower inner aspect right breast these were new from 2020. Stereotactic core biopsy was recommended. She does not feel any lumps masses or nodules of concern in either breast. She has had a stereotactic core biopsy of the left breast in the past which was benign. This was over 20 years ago. She has had bilateral breast biopsies in the remote past and had bilateral fibroadenomas removed. She has not had any recent trauma or infection in the breast. She has not had any other surgery on the breast. Patient is using progesterone and estradiol, and DHEA testosterone cream. This was for a low libido. She has been on these for 15 years. This is through Dr. Vidales's office. Stero core biopsy of the right breast done on 09-14-22. Her pathology was reviewed and showed DCIS grade 2/3, ER+, SD+ Area of involvement is behind the nipple areolar complex and is approximately 2 cm. This was reviewed with Dr. Dick. Genetic testing was done and the patient is PALB2 (+) Note Dr. Siddiqui reviewed 09-22-22 04-13-23 The patient on 11-14-22 underwent bilateral mastectomies with a right SNB. Pathology reveled DCIS completely removed and SLN (-). 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 She is a candidate for pancreatic cancer screening. She also has a MSH6 mutation and consider colonoscopy/EGD and urinalysis screening. Note Dr. Siddiqui reviewed 03-19-23 02-29-24 genetic mutations: MSH 6 mutation, coloncscopy/EGD screening, may increase risk of urothelial cancer consider UA q 6 months PALB B 2 mutation, bilateral mastectomies, PRATIBHA/BSO MRI/MRCP on 03-10-23 WNL as per medical oncology; pancreatic cancer screening( also has a family history of pancreatic cancer) note Dr. Siddiqui 09-18-23 reviewed; She had a MRI/MRCP February 04 and told all [place] due for colonoscopy in one year She is not complaining of anything on the chest wall recently moved to [place] Caffeine: 1 1/2 cups coffee/day nicotine: none chocolate: occasional BCP: 10 years, stopped at age 41 Family History: paternal grandmother: colon cancer paternal aunt: breast cancer Hormonal History: menarche: 14 [id number], age at first live : 31 breast fed: yes menopause: 44 Surgical History: PRATIBHA: 2000 for endometriosis left knee replacement SCC right shoulder 5 years ago bilateral mastectomies and reconstruction Medical History: high cholesterol hypothyroid Social History: smoke: none alcohol: wine QOD drugs: none - Constitutional Constitutional: Reports sweats - EENT Eyes: denies blurred vision, denies pain Ears: left: decreased hearing (meniers disease), deny: tinnitus Ears, nose, mouth and throat: Reports headache, Denies sore throat - Breasts Breasts: bilateral: as per HPI - Cardiovascular Comment: high risk heart disease/ high cholesterol; heart rate to A. fib in her sleep she is not treated for this - Respiratory Comment: COVID cough since June 2022 Respiratory: Denies cough - Gastrointestinal Comment: IBS ?; colonoscopy 1 year ago was OK Gastrointestinal: Denies abdominal pain, Denies diarrhea, Denies nausea, Denies vomiting - Genitourinary (Female) Genitourinary: Denies dysuria, Denies hematuria - Menstruation Menstruation: Reports post hysterectomy - Musculoskeletal Musculoskeletal: Reports as per HPI - Integumentary Integumentary: Denies pruritus, Denies rash - Neurological Neurological: Denies numbness, Denies weakness - Psychiatric Psychiatric: Denies anxiety, Denies depression - Endocrine Comment: hypothyroid Endocrine: Reports fatigue, Denies weight change - Hematologic/Lymphatic Comment: none - Allergic/Immunologic Allergic/Immunologic: Reports seasonal allergies Past Medical History Past Medical History: Cancer, Hyperlipidemia, Osteoarthritis (OA), Thyroid Disorder Additional Past Medical History / Comment(s): hx. squamous cancer, hx. superficial blood clot in leg >20 yrs. ago, Meniere's disease, occasional irregular heart beat, tends to run low BP History of Any Multi-Drug Resistant Organisms: None Reported Past Surgical History: Hysterectomy, Joint Replacement, Orthopedic Surgery Additional Past Surgical History / Comment(s): lt. meniscus surg., multiple sinus surgeries, left knee replaced 2019, COLONOSCOPY Past Anesthesia/Blood Transfusion Reactions: Motion Sickness, Postoperative Nausea & Vomiting (PONV) Additional Past Anesthesia/Blood Transfusion Reaction / Comment(s): severe PONV & experienced lingering headache for 2-3 days following general anesthesia, did ok after knee replacement Past Psychological History: No Psychological Hx Reported Smoking Status: Never smoker Past Alcohol Use History: Occasional Past Drug Use History: None Reported - Past Family History Father Family Medical History: Deep Vein Thrombosis (DVT) Additional Family Medical History / Comment(s): CABG Mother Family Medical History: Coronary Artery Disease (CAD), Deep Vein Thrombosis (DVT) Sister(s) Additional Family Medical History / Comment(s): aneursym x3 Medications and Allergies Home Medications Medication Instructions Recorded Confirmed Type Atorvastatin [Lipitor] 20 mg PO HS 01/06/20 09/14/22 History L.acidoph,Reginald Cashlactis 1 each PO DAILY 01/06/20 09/14/22 History [Probiotic] Levothyroxine Sodium [Synthroid] 25 mcg PO DAILY 01/06/20 09/14/22 History Liothyronine Sodium [Cytomel] 2.5 mcg PO 1200 01/06/20 09/14/22 History Liothyronine Sodium [Cytomel] 5 mcg PO DAILY 01/06/20 09/14/22 History Melatonin 3 mg PO HS PRN 01/06/20 09/14/22 History Progesterone, Micronized 200 mg PO HS 01/06/20 09/14/22 History [Progesterone] Psyllium Husk [Metamucil] 0.4 gm PO HS 01/06/20 09/14/22 History Triamterene/Hydrochlorothiazid 1 each PO DAILY 01/06/20 09/14/22 History [Triamterene-Hctz 37.5-25 mg Tb] diphenhydrAMINE [Benadryl] 25 mg PO DAILY 01/06/20 09/14/22 History Aloe Vera 5,000 mg PO DAILY 05/11/20 09/14/22 History Biotin 5 mg PO DAILY 05/11/20 09/14/22 History Cholecalciferol [Vitamin D3 (25 10,000 unit PO DAILY 05/11/20 09/14/22 History Mcg = 1000 Iu)] Cider Vinegar [Apple Cider Vinegar] 300 mg PO DAILY 05/11/20 09/14/22 History Cinnamon Bark [Cinnamon] 500 mg PO DAILY 05/11/20 09/14/22 History Cranberry Fruit Extract [Cranberry] 200 mg PO DAILY 05/11/20 09/14/22 History Caron 500 mg PO DAILY 05/11/20 09/14/22 History Glucosamine Sulfate 500 mg PO DAILY 05/11/20 09/14/22 History Glutathione 1 tab PO DAILY 05/11/20 09/14/22 History Glycin 1 tab PO DAILY 05/11/20 09/14/22 History Krill Oil 500 mg PO DAILY 05/11/20 09/14/22 History Magnesium 200 mg PO DAILY 05/11/20 09/14/22 History Multivitamins, Thera [Multivitamin 1 tab PO DAILY 05/11/20 09/14/22 History (formulary)] Phytonadione [Vitamin K] 5 mg PO DAILY 05/11/20 09/14/22 History Turmeric Root Extract [Turmeric] 500 mg PO DAILY 05/11/20 09/14/22 History Ubidecarenone [Co Q-10] 100 mg PO DAILY 05/11/20 09/14/22 History Vitamin C With Collagen 1 tab PO DAILY 05/11/20 09/14/22 History flaxseed oiL [Flaxseed Oil] 1,000 mg PO DAILY 05/11/20 09/14/22 History Naproxen Sod/Diphenhydramine 1 each PO HS PRN 09/22/20 09/14/22 History [Aleve Pm Caplet] Allergies Allergy/AdvReac Type Severity Reaction Status Date / Time gluten Allergy Nausea & Verified 09/14/22 07:16 Vomiting black pepper AdvReac Unknown Verified 09/14/22 07:16 egg yolk AdvReac Nausea & Verified 09/14/22 07:16 Vomiting Objective - Constitutional General appearance: Present: cooperative - EENT Eyes: Present: EOMI ENT: Present: hearing grossly normal - Neck Neck: Present: normal ROM - Respiratory Respiratory: bilateral: CTA - Cardiovascular Heart sounds: normal: S1, S2 - Integumentary Integumentary: Present: normal turgor - Musculoskeletal Musculoskeletal: Present: gait normal - Psychiatric Psychiatric: Present: A&O x's 3, appropriate affect, intact judgment & insight - Additional findings Additional findings: Breast examination: The patient is status post bilateral nipple sparing mastectomies with implant reconstruction Right chest wall incision clean and dry well-healed no evidence of any disease in the subcutaneous tissue Right axilla: No adenopathy of concern Left chest wall incision clean and dry well-healed low evidence of any recurrent disease and subcutaneous tissue Left axilla: No adenopathy of concern Assessment and Plan Assessment: Impression: high cholesterol hypothyroid Breast DCIS/retroareolar/approximately 2 cm in size (+) PALB2 mutation heterozygous Patient has had recent colonoscopy and EGD she is being followed for pancreatic cancer UA to be done Plan: UA to be done secondary to MSH 6 mutation; will call for results Follow with [facility] in [place] follow up in 6 months continue to follow with Dr. Siddiqui colonoscopy in 1 year MRI/MRCP in one year CC: Dr. Vidales
[2024-02-29 18:52] LABS: Appearance,Urine Clear (Clear); Bilirubin,Urine Negative (Negative); Blood,Urine Negative (Negative); Color,Urine Yellow (Yellow); Ketones,Urine Negative (Negative); Nitrite,Urine Negative (Negative); PH, Urine 7.5; Specific Gravity,Urine 1.008 (1.001-1.030); Urobilinogen,Urine 0.2 E.U./DL
[2024-02-29 19:04] LABS: Bacteria,Urine None Seen (None Seen)
== END ==
LOC: WWCWWP 10:24
PROVIDERS: ATTEND Surgery
DX: Z08 Encounter for follow-up examination after completed treatment for malignant neoplasm (principal); R92.333 Mammographic heterogeneous density, bilateral breasts; R92.0 Mammographic microcalcification found on diagnostic imaging of breast; E78.00 Pure hypercholesterolemia, unspecified; E03.9 Hypothyroidism, unspecified; D05.11 Intraductal carcinoma in situ of right breast; R68.82 Decreased libido; C25.9 Malignant neoplasm of pancreas, unspecified; Z90.13 Acquired absence of bilateral breasts and nipples; Z80.3 Family history of malignant neoplasm of breast; Z90.710 Acquired absence of both cervix and uterus; Z91.018 Allergy to other foods; Z91.012 Allergy to eggs
CPT/HCPCS: 81001